=== PATIENT | male | born 1930 | race Caucasian/White ===

== ENCOUNTER → 2016-08-11 | Outpatient (CLI) | payer BC ==
[2016-08-10 09:44] LABS: BASO % 0.9 %; BASO ABS # 0.07 K/uL (0-0.2); COMPLETE YES; EOS % 3.9 %; HEMATOCRIT 44.6 % (42-52); IG% 0.5 %; LYMPH % 32.7 %; LYMPH ABS # 2.58 K/uL (1.2-3.4); MEAN CELL VOLUME 93.1 fL (80-100); MEAN CORPUSCULAR HEMOGLOBIN 32.4 pg (25-34); MEAN CORPUSCULAR HGB CONC 34.8 g/dl (32-36); MEAN PLATELET VOLUME 10.4 fL (7.4-10.4); MONO % 8.9 %; NEUT % 53.1 %; PLATELET COUNT 250 K/uL (130-400); RED BLOOD COUNT 4.79 M/uL (4.7-6.1); WHITE BLOOD COUNT 7.89 K/uL (4.8-10.8)
[2016-08-10 09:52] LABS: BLOOD UREA NITROGEN 14 mg/dl (7-18); BUN/CREATININE RATIO 10.4 (10-20); CALCIUM 9.4 mg/dl (8.5-10.1); CARBON DIOXIDE 25 mmol/L (21-32); CHLORIDE 106 mmol/L (98-107); CHOLESTEROL 158 mg/dl (0-200); GLUCOSE 90 mg/dl (70-99); MAGNESIUM 2.1 mg/dl (1.8-2.4); POTASSIUM 3.8 mmol/L (3.5-5.1); SODIUM 143 mmol/L (136-145); TRIGLYCERIDES 120 mg/dl (0-150); VERY LOW DENSITY LIPOPROT CALC 24 mg/dl
[2016-08-10 10:02] LABS: CHOLESTEROL/HDL RATIO 4.2; HDL CHOLESTEROL 38 mg/dl; LDL CHOLESTEROL CALCULATED 96 mg/dl
[2016-08-10 10:33] LABS: ESTIMATED AVERAGE GLUCOSE 114 mg/dl; HA1C FLAG Normal (Normal)
[~2016-08-11] MED LIST: ASPCH81 PO; ASPI81TA28 PO; FINA5TAB PO; INDA1TAB3 PO; MULT-513 PO; NXM/40 PO; RIVA1TAB4 PO; SENN8.6T7 PO; TERA5CAP PO; TPRSR/25 PO
[2016-08-11 10:28] LABS: URINE APPEARANCE CLEAR (CLEAR); URINE BILIRUBIN NEG (NEG); URINE COLOR YELLOW; URINE NITRITE NEG (NEG); URINE PH 7.5 (4.5-7.5); URINE SPECIFIC GRAVITY 1.016 (1.000-1.030); UROBILINOGEN NEG (NEG)
[2016-08-11 10:30] LABS: MANUAL MICROSCOPIC REQUIRED? NO; REVIEW REQ? NO
--- NOTE | 2016-08-17 13:04 | CODING QUERY MEDICAL NECESSITY ---
SUPPORTING DIAGNOSIS NEEDED A supporting diagnosis is required for the test/procedure performed on this patient in order for us to be reimbursed by the patient's insurance. Please provide a supporting diagnosis for the following test/procedure listed below next to the test name along with your signature. *If there is no additional diagnosis for this patient that would support the following test/procedure please document that below next to the test/procedure. Test(s)/Procedure(s) that require a supporting diagnosis: * GLYCATED HEMOGLOBIN DIAGNOSIS: * DOS: 08/10/16 Provider Signature: Date: Thank you Apple [facility] Information Management Once completed, please kindly fax back to [phone] For questions please call [phone]
== END | disposition home or self-care (01) ==
LOC: C.LABVPSUW 08-10 09:19
PROVIDERS: ATTEND Internal Medicine
DX: I10 Essential (primary) hypertension (principal); R73.9 Hyperglycemia, unspecified

== ENCOUNTER → 2016-08-24 | Outpatient (CLI) | payer BC, OTHER ==
--- NOTE | 2016-08-24 13:08 | DIAGNOSTIC IMAGING REPORT ---
ULTRASOUND KIDNEYS AND BLADDER CLINICAL HISTORY: Hypertension. Renal cyst. COMPARISON STUDY: Renal ultrasound dated 10/08/2014. TECHNIQUE: Real-time, grayscale, and color flow sonography of the kidneys and bladder is performed. Images are reviewed in the transverse and longitudinal planes. FINDINGS: Kidneys: The kidneys are atrophic. The right kidney measures 11.3 x 4.8 x 5.5 cm and the left kidney measures 11.3 x 5.3 x 5.0 cm. There is no hydronephrosis. No shadowing renal calculi are identified. A septation containing cyst is again seen in the interpolar right kidney and measures up to 4.3 cm. An additional smaller cyst is noted. There is no sonographic evidence of contour deforming renal mass lesion. No perinephric fluid is identified. Bladder: The bladder is normal in appearance. Bilateral ureteral jets were seen. IMPRESSION: 1. The kidneys are atrophic and without hydronephrosis. 2. The bladder was normal as visualized. 3. Right renal cysts are similar to the 10/08/2014 examination. Electronically signed by: Geoffrey Caballero M.D. 08/24/2016 1:07 PM Dictated Date/Time: 08/24/2016 1:04 PM
== END | disposition home or self-care (01) ==
LOC: C.ULTR 12:30
PROVIDERS: ATTEND Internal Medicine
DX: I10 Essential (primary) hypertension (principal); N28.1 Cyst of kidney, acquired; N26.1 Atrophy of kidney (terminal)

== ENCOUNTER 2016-08-30 22:01 | Inpatient (IN) | payer BC, OTHER ==
[~2016-08-30] VITALS: Ht 180.3 cm; Wt 97.8 kg
[~2016-08-30 22:01] MED LIST changes: -ASPI81TA28 PO; -RIVA1TAB4 PO; -SENN8.6T7 PO; -TPRSR/25 PO
[2016-08-30] MEDS ORDERED: TPRSR/25 PO (22:32)
[2016-08-30] MEDS ORDERED: ASPI81TA28 PO (22:32)
[2016-08-30] MEDS ORDERED: RIVA1TAB4 PO (22:32)
[2016-08-30] MEDS ORDERED: ONDANSETRON INJ 2 MG/ML 2 ML VIAL IV STA (23:11)
[2016-08-30] MEDS ORDERED: OPTIRAY 320 IV PRN (23:30)
--- NOTE | 2016-08-30 23:30 | EMERGENCY ROOM VISIT NOTE ---
ED Visit Note First contact with patient: 22:10 I have seen and examined this patient with Viv Lange and generally agree with the treatment plan as discussed. Problem List Medical Problems: (1) Hematuria Status: Resolved (2) Renal cyst Status: Resolved (3) UTI (urinary tract infection) Status: Resolved Current/Historical Medications Scheduled Aspirin (Aspirin Ec), 81 MG PO DAILY Esomeprazole Magnesium (Nexium), 40 MG PO DAILY Finasteride (Proscar), 5 MG PO DAILY Indapamide (Lozol), 1.25 MG PO DAILY Metoprolol Succinate (Metoprolol Succinate ER), 1 TAB PO DAILY Multivitamins/Minerals (Mvi With Minerals), 1 TAB PO DAILY Rivaroxaban (Xarelto), 1 TAB PO DAILY Terazosin (Hytrin), 5 MG PO DAILY Allergies Coded Allergies: Penicillins (Unverified Allergy, Severe, HIVES, 08/30/16) Sulfamethoxazole (Unverified Allergy, Severe, RASH ITCHING, 08/30/16) Vital Signs Date Time Temp Pulse Resp B/P Pulse Ox O2 Delivery O2 Flow Rate FiO2 08/30/16 22:03 36.4 99 16 148/81 98 Room Air Laboratory Results Test 08/30/16 22:18 Departure Information Referrals Ruddy Browne M.D. (PCP) Patient Instructions My [facility]
[2016-08-30 23:45] LABS: HEMATOCRIT 47.1 % (42-52); MEAN CELL VOLUME 90.1 fL (80-100); MEAN CORPUSCULAR HEMOGLOBIN 32.3 pg (25-34); MEAN CORPUSCULAR HGB CONC 35.9 g/dl (32-36); MEAN PLATELET VOLUME 9.5 fL (7.4-10.4); PLATELET COUNT 252 K/uL (130-400); RED BLOOD COUNT 5.23 M/uL (4.7-6.1); WHITE BLOOD COUNT 13.44 K/uL (4.8-10.8)
[2016-08-31] VITALS (7 sets, daily range): BP systolic 115–140; BP diastolic 71–81; PULSE 60–94; TEMP 36.4–36.7; O2SAT 92–98; Ht 180.3 cm; Wt 97.8 kg
[2016-08-31 00:01] LABS: URINE APPEARANCE CLEAR (CLEAR); URINE BILIRUBIN NEG (NEG); URINE COLOR DK YELLOW; URINE NITRITE NEG (NEG); URINE PH 5.5 (4.5-7.5); URINE SPECIFIC GRAVITY 1.019 (1.000-1.030); UROBILINOGEN NEG (NEG); ZZUR CULT IF INDIC CLEAN CATCH NO
[2016-08-31 00:06] LABS: CREATININE 1.3 mg/dl (0.60-1.40)
[2016-08-31 00:07] LABS: BUN/CREATININE RATIO 11.8 (10-20); CALCIUM 9.5 mg/dl (8.5-10.1); POTASSIUM 3.6 mmol/L (3.5-5.1)
[2016-08-31 00:11] LABS: MANUAL MICROSCOPIC REQUIRED? NO; REVIEW REQ? NO
[2016-08-31 00:19] LABS: BASO % 0.3 %; BASO ABS # 0.04 K/uL (0-0.2); COMPLETE YES; EOS % 0.7 %; IG% 0.4 %; LYMPH % 13.8 %; LYMPH ABS # 1.85 K/uL (1.2-3.4); MONO % 5.8 %
--- NOTE | 2016-08-31 01:50 | EMERGENCY ROOM VISIT NOTE ---
History First contact with patient: 22:10 Chief Complaint: ABDOMINAL PAIN Stated Complaint: ABD PRESSURE History of Present Illness The patient is a 86 year old male who presents to the Emergency Room with complaints of generalized abdominal pain. The patient states that for the past 5 days he has been having to strain to move his bowels. He states on and Wednesday he took 2 tablets of Dulcolax each time but still had to strain to move his bowels. Early this morning at 2 AM he woke up to go urinate and when he got back in the bed he felt achy in the stomach. He states this lasted for 30 minutes and then went away. This evening he started getting generalized abdominal pain which she rates at a 2 out of 10. Intermittently the pain goes up to 5 out of 10 with a sharp pain. The patient does admit to some hematuria but states that has been an ongoing problem. He has been checked out for that in the past. The patient denies any dysuria, increased frequency or urgency. The patient denies any nausea or vomiting. He denies any fever. Review of Systems 10 system review was performed and was negative unless stated otherwise history of present illness. Past Medical/Surgical History Medical Problems: (1) Hematuria (2) Renal cyst (3) UTI (urinary tract infection) Social History Smoking Status: Never Smoker Marital Status: Housing Status: lives with significant other Occupation Status: retired Current/Historical Medications Scheduled Aspirin (Aspirin Ec), 81 MG PO DAILY Esomeprazole Magnesium (Nexium), 40 MG PO DAILY Finasteride (Proscar), 5 MG PO DAILY Indapamide (Lozol), 1.25 MG PO DAILY Metoprolol Succinate (Metoprolol Succinate ER), 1 TAB PO DAILY Multivitamins/Minerals (Mvi With Minerals), 1 TAB PO DAILY Rivaroxaban (Xarelto), 1 TAB PO DAILY Terazosin (Hytrin), 5 MG PO DAILY Allergies Coded Allergies: Penicillins (Unverified Allergy, Severe, HIVES, 08/30/16) Sulfamethoxazole (Unverified Allergy, Severe, RASH ITCHING, 08/30/16) Physical Exam Vital Signs Date Time Temp Pulse Resp B/P Pulse Ox O2 Delivery O2 Flow Rate FiO2 08/30/16 23:46 73 18 131/56 93 Room Air 08/30/16 22:03 36.4 99 16 148/81 98 Room Air Physical Exam GENERAL: 86-year-old white male appears in no acute distress. MENTAL Status: Alert and oriented 3. MOUTH: Mucosa is moist. NECK: Supple, no lymphadenopathy noted. No carotid bruits noted. LUNGS: Clear auscultation without wheezes rales or rhonchi. CARDIAC: Regular rate and rhythm with a 2/6 murmur noted.. Pulses is full and equal throughout. BACK: No CVA tenderness noted. ABDOMEN: Positive bowel sounds all 4 quadrants. Soft, mild tenderness palpation in the left upper and lower quadrant. Otherwise nontender to palpation without organomegaly or masses. EXTREMITIES: No cyanosis or edema noted. Medical Decision & Procedures Laboratory Results 08/30/16 23:30 Red Blood Count 5.23, Mean Corpuscular Volume 90.1, Mean Corpuscular Hemoglobin 32.3, Mean Corpuscular Hemoglobin Concent 35.9, Mean Platelet Volume 9.5, Neutrophils (%) (Auto) 79.0, Lymphocytes (%) (Auto) 13.8, Monocytes (%) (Auto) 5.8, Eosinophils (%) (Auto) 0.7, Basophils (%) (Auto) 0.3, Neutrophils # (Auto) 10.62, Lymphocytes # (Auto) 1.85, Monocytes # (Auto) 0.78, Eosinophils # (Auto) 0.09, Basophils # (Auto) 0.04 08/30/16 23:30 Test 08/30/16 23:30 White Blood Count 13.44 K/uL (4.8-10.8) Red Blood Count 5.23 M/uL (4.7-6.1) Hemoglobin 16.9 g/dL (14.0-18.0) Hematocrit 47.1 % (42-52) Mean Corpuscular Volume 90.1 fL (80-100) Mean Corpuscular Hemoglobin 32.3 pg (25-34) Mean Corpuscular Hemoglobin Concent 35.9 g/dl (32-36) Platelet Count 252 K/uL (130-400) Mean Platelet Volume 9.5 fL (7.4-10.4) Neutrophils (%) (Auto) 79.0 % Lymphocytes (%) (Auto) 13.8 % Monocytes (%) (Auto) 5.8 % Eosinophils (%) (Auto) 0.7 % Basophils (%) (Auto) 0.3 % Neutrophils # (Auto) 10.62 K/uL (1.4-6.5) Lymphocytes # (Auto) 1.85 K/uL (1.2-3.4) Monocytes # (Auto) 0.78 K/uL (0.11-0.59) Eosinophils # (Auto) 0.09 K/uL (0-0.5) Basophils # (Auto) 0.04 K/uL (0-0.2) RDW Standard Deviation 43.0 fL (36.4-46.3) RDW Coefficient of Variation 13.0 % (11.5-14.5) Immature Granulocyte % (Auto) 0.4 % Immature Granulocyte # (Auto) 0.06 K/uL (0.00-0.02) Urine Color DK YELLOW Urine Appearance CLEAR (CLEAR) Urine pH 5.5 (4.5-7.5) Urine Specific [place] 1.019 (1.000-1.030) Urine Protein NEG (NEG) Urine Glucose (UA) NEG (NEG) Urine Ketones NEG (NEG) Urine Occult Blood 1+ (NEG) Urine Nitrite NEG (NEG) Urine Bilirubin NEG (NEG) Urine Urobilinogen NEG (NEG) Urine Leukocyte Esterase NEG (NEG) Urine WBC (Auto) 1-5 /hpf (0-5) Urine RBC (Auto) 5-10 /hpf (0-4) Urine Hyaline Casts (Auto) 0 /lpf (0-5) Urine Epithelial Cells (Auto) 10-20 /lpf (0-5) Urine Bacteria (Auto) NEG (NEG) Anion Gap 12.0 mmol/L (3-11) Est Creatinine Clear Calc Drug Dose 48.6 ml/min Estimated GFR () 57.3 Estimated GFR (Non- 49.4 BUN/Creatinine Ratio 11.8 (10-20) Calcium Level 9.5 mg/dl (8.5-10.1) Total Bilirubin 0.6 mg/dl (0.2-1) Direct Bilirubin 0.1 mg/dl (0-0.2) Aspartate Amino Transf (AST/SGOT) 30 U/L (15-37) Alanine Aminotransferase (ALT/SGPT) 41 U/L (12-78) Alkaline Phosphatase 71 U/L (45-117) Total Protein 7.9 gm/dl (6.4-8.2) Albumin 3.9 gm/dl (3.4-5.0) Lipase 131 U/L (73-393) Medications Administered Medications (Trade) Dose Ordered Sig/Eliezer Route Start Time Stop Time Status Last Admin Dose Admin Ondansetron HCl (Zofran Inj) 4 mg NOW STAT IV 08/30/16 23:11 08/30/16 23:12 DC 08/30/16 23:36 4 MG ED Course The patient was evaluated. IV access was obtained. CBC differential, renal profile, LFTs and lipase levels were ordered. Urinalysis was ordered. Abdominal series x-ray was ordered and interpreted by the radiologist and myself without any evidence of obstruction. There is a [id number] amount of stool within the colon. This will later be interpreted by the radiologist. The patient was reevaluated was feeling slightly nauseated therefore he was given Zofran 4 mg IV push. The patient's labs are reviewed. Patient's white count was only out slightly elevated at 13,000 otherwise labs are unremarkable. The patient was independently evaluated the Dr. Botello who agrees with treatment plan. A CT of the abdomen and pelvis with IV contrast was ordered and interpreted by stat rad. 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 1.8 Hycodan's cardiac mass in the left atrium could reflect thrombus or skull lesion such as myxoma. 5 mm right lower lobe nodule. The patient was informed of the findings. Hospitalist was consulted for admission. Dr. Karimi was also consulted. Dr. Karimi reviewed the images and stated that the patient could be admitted by the hospitalist. The hospitalist was informed and the patient will be admitted by medicine. Medical Decision Differential diagnoses include reflux, gastritis, gastroenteritis, pancreatitis , cholelithiasis, cholecystitis, appendicitis, mesenteric ischemia, pyelonephritis, urinary tract infection, renal colic, diverticulitis, shingles, bowel obstruction, intussusception, hernia, Impression Primary Impression: Small bowel obstruction Additional Impressions: Aneurysm of infrarenal abdominal aorta Right lower lobe lung mass Cardiac mass Departure Information Dispostion Being Evaluated By Hospitalist Condition GOOD Referrals Ruddy Browne M.D. (PCP) Patient Instructions My [facility] Problem Qualifiers
[2016-08-31] MEDS ORDERED: ONDANSETRON INJ 2 MG/ML 2 ML VIAL IV PRN (02:45)
[2016-08-31] MEDS ORDERED: MoRPHine SULFATE 2 MG/ML CARP IV PRN (02:45)
--- NOTE | 2016-08-31 03:50 | History and Physical ---
History & Physical Date & Time of Service: Aug 31, 2016 at 03:24 Chief Complaint: Abd Pressure Primary Care Physician: Ruddy Browne M.D. History of Present Illness Source: patient, family 86 y/o M w/Hx of HTN, paroxysmal AF. Pt developed central abdominal pain and constipation over the past 2 days. He denies any diarrhea, nausea or vomiting. He denies fevers. A CT was obtained in the ER revealing Jejunal thickening and a related SBO. The pt is passing small amounts of gas but has not had a BM in over 2 days. Incidentally present on the CT is a 1.8 cm L atrial mass which may represent a thrombus or myxoma. The pt has not had any CP or SOB. He is anticoagulated with Xarelto. Past Medical/Surgical History Medical Problems: (1) Hematuria Status: Resolved (2) Renal cyst Status: Resolved (3) UTI (urinary tract infection) Status: Resolved 4) Paroxysmal AF 5) BPH 6) HTN Family History Reviewed and noncontributory Social History Smoking Status: Never Smoker Marital Status: Occupational Status: retired Multi-Drug Resistant Organisms History of MDRO: No Allergies Coded Allergies: Penicillins (Unverified Allergy, Severe, HIVES, 08/30/16) Sulfamethoxazole (Unverified Allergy, Severe, RASH ITCHING, 08/30/16) Home Medications Scheduled Aspirin (Aspirin Ec), 81 MG PO DAILY Esomeprazole Magnesium (Nexium), 40 MG PO DAILY Finasteride (Proscar), 5 MG PO DAILY Indapamide (Lozol), 1.25 MG PO DAILY Metoprolol Succinate (Metoprolol Succinate ER), 1 TAB PO DAILY Multivitamins/Minerals (Mvi With Minerals), 1 TAB PO DAILY Rivaroxaban (Xarelto), 1 TAB PO DAILY Terazosin (Hytrin), 5 MG PO DAILY Review of Systems Constitutional: No chills, No fever, No sweats Eyes: No eye pain, No worsening of vision ENT: No hearing loss, No nasal symptoms, No unusual epistaxis Respiratory: No cough, No sputum, No wheezing Cardiovascular: No PND, No chest pain, No orthopnea Abdomen: + constipation, + pain, No diarrhea, No nausea, No vomiting Musculoskeletal: No joint pain, No muscle pain Genitourinary - Male: No dysuria, No hematuria, No urinary frequency, No urinary urgency Neurologic: No memory loss, No paralysis, No weakness Psychiatric: No depression symptoms Endocrine: No fatigue Hematologic / Lymphatic: No abnormal bleeding/bruising Integumentary: No rash Allergic / Immunologic: No environmental allergies Physical Exam Vital Signs Date Time Temp Pulse Resp B/P Pulse Ox O2 Delivery O2 Flow Rate FiO2 08/31/16 02:57 71 18 125/58 96 Room Air 08/31/16 01:57 71 18 125/60 94 Room Air 08/30/16 23:46 73 18 131/56 93 Room Air 08/30/16 22:03 36.4 99 16 148/81 98 Room Air General Appearance: WD/WN, no apparent distress Head: normocephalic, atraumatic Eyes: normal inspection, PERRL, EOMI ENT: normal ENT inspection, hearing grossly normal, TMs normal, pharynx normal Neck: supple, no adenopathy, thyroid normal, no JVD Respiratory/Chest: chest non-tender, lungs clear, normal breath sounds Cardiovascular: regular rate, rhythm, no edema, no gallop, no JVD, no murmur, normal peripheral pulses Abdomen/GI: + pertinent finding (Abdomen is firm , nondistended and minimally diffusely tender to palpation) Back: normal inspection, no CVA tenderness Extremities/Musculoskelatal: normal inspection, no calf tenderness, normal capillary refill, no pedal edema, normal range of motion Neurologic/Psych: grease renderer II-XII nml as tested, no motor/sensory deficits, alert, normal mood/affect, normal reflexes, oriented x 3 Skin: normal color, warm/dry, no rash Lymphatic: no adenopathy Diagnostics Laboratory Results Results Past 24 Hours Test 08/30/16 23:30 Range/Units White Blood Count 13.44 4.8-10.8 K/uL Red Blood Count 5.23 4.7-6.1 M/uL Hemoglobin 16.9 14.0-18.0 g/dL Hematocrit 47.1 42-52 % Mean Corpuscular Volume 90.1 80-100 fL Mean Corpuscular Hemoglobin 32.3 25-34 pg Mean Corpuscular Hemoglobin Concent 35.9 32-36 g/dl Platelet Count 252 130-400 K/uL Mean Platelet Volume 9.5 7.4-10.4 fL Neutrophils (%) (Auto) 79.0 % Lymphocytes (%) (Auto) 13.8 % Monocytes (%) (Auto) 5.8 % Eosinophils (%) (Auto) 0.7 % Basophils (%) (Auto) 0.3 % Neutrophils # (Auto) 10.62 1.4-6.5 K/uL Lymphocytes # (Auto) 1.85 1.2-3.4 K/uL Monocytes # (Auto) 0.78 0.11-0.59 K/uL Eosinophils # (Auto) 0.09 0-0.5 K/uL Basophils # (Auto) 0.04 0-0.2 K/uL RDW Standard Deviation 43.0 36.4-46.3 fL RDW Coefficient of Variation 13.0 11.5-14.5 % Immature Granulocyte % (Auto) 0.4 % Immature Granulocyte # (Auto) 0.06 0.00-0.02 K/uL Urine Color DK YELLOW Urine Appearance CLEAR CLEAR Urine pH 5.5 4.5-7.5 Urine Specific [place] 1.019 1.000-1.030 Urine Protein NEG NEG Urine Glucose (UA) NEG NEG Urine Ketones NEG NEG Urine Occult Blood 1+ NEG Urine Nitrite NEG NEG Urine Bilirubin NEG NEG Urine Urobilinogen NEG NEG Urine Leukocyte Esterase NEG NEG Urine WBC (Auto) 1-5 0-5 /hpf Urine RBC (Auto) 5-10 0-4 /hpf Urine Hyaline Casts (Auto) 0 0-5 /lpf Urine Epithelial Cells (Auto) 10-20 0-5 /lpf Urine Bacteria (Auto) NEG NEG Sodium Level 141 136-145 mmol/L Potassium Level 3.6 3.5-5.1 mmol/L Chloride Level 102 98-107 mmol/L Carbon Dioxide Level 27 21-32 mmol/L Anion Gap 12.0 3-11 mmol/L Blood Urea Nitrogen 15 7-18 mg/dl Creatinine 1.30 0.60-1.40 mg/dl Est Creatinine Clear Calc Drug Dose 48.6 ml/min Estimated GFR () 57.3 Estimated GFR (Non- 49.4 BUN/Creatinine Ratio 11.8 10-20 Random Glucose 137 70-99 mg/dl Calcium Level 9.5 8.5-10.1 mg/dl Total Bilirubin 0.6 0.2-1 mg/dl Direct Bilirubin 0.1 0-0.2 mg/dl Aspartate Amino Transf (AST/SGOT) 30 15-37 U/L Alanine Aminotransferase (ALT/SGPT) 41 12-78 U/L Alkaline Phosphatase 71 45-117 U/L Total Protein 7.9 6.4-8.2 gm/dl Albumin 3.9 3.4-5.0 gm/dl Lipase 131 73-393 U/L Diagnostic Radiology CT abdomen: 1) Jejunal thickening consistent with enteritis and resultant SBO 2) Infrarenal AAA 3.4 cm 3) Moderate atherosclerosis of superior mesenteric artery 4) 1.8 CM hypodense mass in L atrium may represent myxoma or thrombus Impression Assessment and Plan 86 y/o M w/Hx of HTN, paroxysmal AF. Pt developed central abdominal pain and constipation over the past 2 days. He denies any diarrhea, nausea or vomiting. He denies fevers. A CT was obtained in the ER revealing Jejunal thickening and a related SBO. The pt is passing small amounts of gas but has not had a BM in over 2 days. Incidentally present on the CT is a 1.8 cm L atrial mass which may represent a thrombus or myxoma. The pt has not had any CP or SOB. He is anticoagulated with Xarelto. 1) SBO - We will keep the pt NPO w/IVF, consult surgery - explained to him that he may need an NGT with worsening pain or nausea/vomiting - we will obtain a lactic and amylase to r/o an ischemic etiology considering the atherosclerosis on CT. Provided with PRN Morphine. 2) Atrial mass - echo and cardiology consult requested. It is unlikely that surgery would be beneficial at present if this is a myxoma. If this is verified as a thrombus then the pt should likely be transitioned to Coumadin. Pt and family aware of finding. 3) AF - currently sinus - Cont B clemente 4) HTN - Metoprolol, Indapamide 5) BPH - Proscar Full code - fully anticoagulated Total time for this admit including review of labs, meds, imaging, available records - discussion with ER attending and pt/family - 38 min Level of Care Med/Surg Resuscitation Status FULL RESUSCITATION VTE Prophylaxis VTE Risk Assessment Done? Y/N: Yes Risk Level: Low Given or contraindicated: Other Anticoagulation
[2016-08-31] MEDS: NSS + 20MEQ KCL 1000ML 1,000 ML IV SCH ×2 (05:06→14:44)
--- NOTE | 2016-08-31 05:42 | Surgery Progress Note ---
Surgery Progress Note Date of Service Aug 31, 2016. Subjective see dictated consult Objective Vital Signs: Date Time Temp Pulse Resp B/P Pulse Ox O2 Delivery O2 Flow Rate FiO2 08/31/16 03:25 Room Air 08/31/16 03:25 36.5 87 18 124/71 97 Room Air 08/31/16 02:57 71 18 125/58 96 Room Air 08/31/16 01:57 71 18 125/60 94 Room Air 08/30/16 23:46 73 18 131/56 93 Room Air 08/30/16 22:03 36.4 99 16 148/81 98 Room Air Abdomen: soft (decreased bs) Laboratory Results: Results Past 24 Hours Test 08/30/16 23:30 Range/Units White Blood Count 13.44 4.8-10.8 K/uL Red Blood Count 5.23 4.7-6.1 M/uL Hemoglobin 16.9 14.0-18.0 g/dL Hematocrit 47.1 42-52 % Mean Corpuscular Volume 90.1 80-100 fL Mean Corpuscular Hemoglobin 32.3 25-34 pg Mean Corpuscular Hemoglobin Concent 35.9 32-36 g/dl Platelet Count 252 130-400 K/uL Mean Platelet Volume 9.5 7.4-10.4 fL Neutrophils (%) (Auto) 79.0 % Lymphocytes (%) (Auto) 13.8 % Monocytes (%) (Auto) 5.8 % Eosinophils (%) (Auto) 0.7 % Basophils (%) (Auto) 0.3 % Neutrophils # (Auto) 10.62 1.4-6.5 K/uL Lymphocytes # (Auto) 1.85 1.2-3.4 K/uL Monocytes # (Auto) 0.78 0.11-0.59 K/uL Eosinophils # (Auto) 0.09 0-0.5 K/uL Basophils # (Auto) 0.04 0-0.2 K/uL RDW Standard Deviation 43.0 36.4-46.3 fL RDW Coefficient of Variation 13.0 11.5-14.5 % Immature Granulocyte % (Auto) 0.4 % Immature Granulocyte # (Auto) 0.06 0.00-0.02 K/uL Urine Color DK YELLOW Urine Appearance CLEAR CLEAR Urine pH 5.5 4.5-7.5 Urine Specific [place] 1.019 1.000-1.030 Urine Protein NEG NEG Urine Glucose (UA) NEG NEG Urine Ketones NEG NEG Urine Occult Blood 1+ NEG Urine Nitrite NEG NEG Urine Bilirubin NEG NEG Urine Urobilinogen NEG NEG Urine Leukocyte Esterase NEG NEG Urine WBC (Auto) 1-5 0-5 /hpf Urine RBC (Auto) 5-10 0-4 /hpf Urine Hyaline Casts (Auto) 0 0-5 /lpf Urine Epithelial Cells (Auto) 10-20 0-5 /lpf Urine Bacteria (Auto) NEG NEG Sodium Level 141 136-145 mmol/L Potassium Level 3.6 3.5-5.1 mmol/L Chloride Level 102 98-107 mmol/L Carbon Dioxide Level 27 21-32 mmol/L Anion Gap 12.0 3-11 mmol/L Blood Urea Nitrogen 15 7-18 mg/dl Creatinine 1.30 0.60-1.40 mg/dl Est Creatinine Clear Calc Drug Dose 48.6 ml/min Estimated GFR () 57.3 Estimated GFR (Non- 49.4 BUN/Creatinine Ratio 11.8 10-20 Random Glucose 137 70-99 mg/dl Calcium Level 9.5 8.5-10.1 mg/dl Total Bilirubin 0.6 0.2-1 mg/dl Direct Bilirubin 0.1 0-0.2 mg/dl Aspartate Amino Transf (AST/SGOT) 30 15-37 U/L Alanine Aminotransferase (ALT/SGPT) 41 12-78 U/L Alkaline Phosphatase 71 45-117 U/L Total Protein 7.9 6.4-8.2 gm/dl Albumin 3.9 3.4-5.0 gm/dl Lipase 131 73-393 U/L Assessment & Plan 08/31/16- adm with abd pain, nausea- possible sbo on CT nonoperative mgt at present. hold NG unless worsens
--- NOTE | 2016-08-31 07:41 | DIAGNOSTIC IMAGING REPORT ---
ABDOMEN AND PELVIS CT WITH IV CONTRAST CT DOSE: 762.24 mGy.cm HISTORY: left upper and left lower abdominal pain TECHNIQUE: Multiaxial CT images of the abdomen and pelvis were performed following the use of intravenous contrast. COMPARISON STUDY: Renal ultrasound 08/24/2016. FINDINGS: A 4 mm subpleural nodule within the right lower lobe on image 2. Bibasilar subsegmental atelectasis. The liver, gallbladder, spleen, adrenal glands, and pancreas are unremarkable. There is a right renal cyst. No hydronephrosis. A 3.6 cm infrarenal abdominal aortic aneurysm. The bladder is unremarkable. Colonic diverticulosis. Normal appendix. Short segment of thickened jejunum within the left anterior abdomen on images 48 through 56. This results in the transition point of the low-grade partial small bowel obstruction. There is a 2 cm hypodense filling defect seen within the left atrium abutting the intra-atrial septum. Mild to moderate narrowing within the proximal superior mesenteric artery. IMPRESSION: 1. Focal segment of mild bowel wall thickening involving the jejunum within the left anterior abdomen. This results in a transition point for a low-grade partial small bowel obstruction. This is consistent with a nonspecific enteritis. 2. A 3.6 cm infrarenal abdominal aortic aneurysm. 3. A 2 cm hypodense filling defect seen within the left atrium abutting the endotracheal septum. Echocardiogram can be used for further evaluation to evaluate for a thrombus or lesion such as a myxoma. Electronically signed by: Jaziel Humphreys M.D. 08/31/2016 7:40 AM Dictated Date/Time: 08/31/2016 7:33 AM
--- NOTE | 2016-08-31 07:43 | DIAGNOSTIC IMAGING REPORT ---
CHEST AND ABDOMEN 2 VIEWS HISTORY: constipation/generalized abdominal pain COMPARISON: Chest 01/11/2015. FINDINGS: The lungs are clear. The cardiomediastinal silhouette is within normal limits. There is no pneumoperitoneum or pneumatosis. The bowel gas pattern is unremarkable. No evidence for bowel obstruction. No renal calculi. IMPRESSION: No acute cardiopulmonary process. No evidence for bowel obstruction. Electronically signed by: Jaziel Humphreys M.D. 08/31/2016 7:42 AM Dictated Date/Time: 08/31/2016 7:41 AM
--- NOTE | 2016-08-31 08:53 | SURGICAL CONSULTATION ---
DATE OF CONSULTATION: 08/31/2016 REASON FOR CONSULT: For small bowel obstruction. HISTORY OF PRESENT ILLNESS: The patient is an 86-year-old male presenting to the Emergency Room with abdominal pain and nausea and had some constipation. He took some Dulcolax and did have a bowel movement but had some persistent abdominal pain and presented to the Emergency Room. He does show some evidence of dehydration and his CAT scan shows some very mildly dilated small bowel loops, which shows possible small-bowel obstruction. White blood cell count is 13.4. His H\T\H is 16.9 and 47 respectively, pulse is 73 and he is on Xarelto. His other history includes UTI and hematuria. He also has a history of AFib. FAMILY AND SOCIAL HISTORY: Essentially noncontributory. REVIEW OF SYSTEMS: He has a positive review in the HPI. He has no fevers, chills, cough, shortness of breath, chest pain, vomiting, joint pain, dysuria, weakness, fatigue. No rash. PHYSICAL EXAMINATION: HEENT: Eyes show his sclerae to be normal, no rashes, atraumatic head. NECK: Supple. LUNGS: No respiratory distress. HEART: Irregular rhythm. ABDOMEN: Flat and soft. He has minimal tenderness. He has decreased bowel sounds. EXTREMITIES: Without significant edema, no significant deformities. I did review the CAT scan. ASSESSMENT AND PLAN: An 86-year-old male who actually looks very good for his age. Admitted with mildly dilated small bowel on CAT scan with abdominal pain and nausea. He apparently has had symptoms for 4-5 days. We will continue him on IV fluids, minimal p.o. intake, make sure his electrolytes are normalized. If he does worsen, he may need an NG tube and we may consider contrast with repeat CT scan.
[2016-08-31] MEDS: ASPIRIN 81 MG ECTAB PO SCH (09:56)
[2016-08-31] MEDS: METOPROLOL SUCC 25MG EXT REL TAB PO SCH (09:57)
[2016-08-31] MEDS: PANTOprazole SOD 40 MG TAB PO SCH (09:57)
[2016-08-31] MEDS: FINASTERIDE 5 MG TAB PO SCH (09:57)
[2016-08-31] MEDS: INDAPAMIDE 1.25 MG TAB PO SCH (09:57)
--- NOTE | 2016-08-31 10:12 | Medical Student: [facility] ---
Consultation Date of Consultation: Aug 31, 2016. Requesting Physician: Melecio Woods MD Attending Physician: Floyd Walker MD Reason for Consultation: Left atrial mass History of Present Illness Mr. Matthew is a pleasant 86 y/o male with a history of hypertension and paroxysmal atrial fibrillation who presented to the ED yesterday for a small bowel obstruction. CT of the chest and abdomen performed at that time showed a 1.8cm mass in the left atrium. He denies chest pain, shortness of breath, nausea, or jaw/arm symptoms. He denies fever or chills. He currently reports 2/ 10 abdominal pain, which he attributes to his small bowel obstruction. He does report that, at home, he does have some dyspnea with exertion, but this is relieved with rest and not associated with any chest pain or pressure. He denies weakness, paresthesias, sensory deficits, coordination problems, or memory difficulties. He denies calf tenderness. He has no history of abnormal clots or bleeding. He has been NSR since admission and vitals have been stable throughout his hospital course. He is currently anticoagulated with Xarelto 20mg daily and also takes 81mg aspirin daily. He states that he had an echo performed approximately 3 months ago, and this mass was not present at that time. Past Medical/Surgical History Medical History: 1. Hypertension 2. Paroxysmal atrial fibrillation 3. Benign prostatic hypertrophy 4. Hematuria 5. Renal cyst Family History Non-contributory; no family history of cardiac tumors or coagulopathy. Social History Smoking Status: Never Smoker History of Alcohol Use: Yes (wine occassionaly ) Marital Status: Housing Status: lives with family Occupation Status: retired Review of Systems Constitutional: No chills, No fatigue, No fever, No sweats, No weakness, No weight loss Eyes: No diplopia, No eye pain, No worsening of vision ENT: No hearing loss, No tinnitus, No trouble swallowing, No unusual epistaxis Respiratory: + dyspnea on exertion, No cough, No dyspnea at rest, No shortness of breath, No wheezing Cardiac: No PND, No chest pain, No claudication, No edema, No orthopnea, No palpitations Abdomen: + constipation, + pain, No GI bleeding, No diarrhea, No nausea, No vomiting Musculoskeletal: No problem reported Male : + hematuria (baseline for him) Neurologic: No balance problems, No memory loss, No numbness/tingling, No paralysis, No vertigo, No weakness Heme: No abnormal bleeding/bruising, No clotting problems Endo: No excessive thirst, No excessive urination Skin: No bleeding, No new/changing skin lesions, No rash All Other Systems: Reviewed and Negative Allergies Coded Allergies: Penicillins (Unverified Allergy, Severe, HIVES, 08/30/16) Sulfamethoxazole (Unverified Allergy, Severe, RASH ITCHING, 08/30/16) Medications Current Inpatient Medications Medications (Trade) Dose Ordered Sig/Eliezer Route Start Time Stop Time Status Last Admin Dose Admin Ioversol (Optiray 320) 100 ml UD PRN IV 08/30/16 23:30 09/03/16 23:29 Aspirin (Ecotrin Tab) 81 mg DAILY PO 08/31/16 09:00 09/30/16 08:59 Finasteride (Proscar Tab) 5 mg DAILY PO 08/31/16 09:00 09/30/16 08:59 Indapamide (Lozol Tab) 1.25 mg DAILY PO 08/31/16 09:00 09/30/16 08:59 Metoprolol Succinate (Toprol Xl Tab) 25 mg DAILY PO 08/31/16 09:00 09/30/16 08:59 Rivaroxaban (Xarelto Tab) 20 mg DAILY@1700 PO 08/31/16 17:00 09/30/16 16:59 Terazosin HCl (Hytrin Cap) 5 mg DAILY PO 08/31/16 09:00 09/30/16 08:59 Pantoprazole Sodium (Protonix Tab) 40 mg DAILY PO 08/31/16 09:00 09/30/16 08:59 Ondansetron HCl (Zofran Inj) 4 mg Q6H PRN IV 08/31/16 02:45 09/30/16 02:44 08/31/16 07:54 4 MG Morphine Sulfate 2 mg 2 mg Q3H PRN IV 08/31/16 02:45 09/14/16 02:44 Potassium Chloride/Sodium Chloride (Nss + 20meq KCl 1000ml) 1,000 ml @ 100 mls/hr Q10H IV 08/31/16 05:00 09/01/16 00:59 08/31/16 05:06 100 MLS/HR Physical Exam Date Time Temp Pulse Resp B/P Pulse Ox O2 Delivery O2 Flow Rate FiO2 08/31/16 09:18 92 Room Air 08/31/16 07:45 97 Room Air 08/31/16 07:45 36.5 60 18 140/76 92 Room Air 08/31/16 03:25 Room Air 08/31/16 03:25 36.5 87 18 124/71 97 Room Air 08/31/16 02:57 71 18 125/58 96 Room Air 08/31/16 01:57 71 18 125/60 94 Room Air 08/30/16 23:46 73 18 131/56 93 Room Air 08/30/16 22:03 36.4 99 16 148/81 98 Room Air General Appearance: WD/WN, no apparent distress Eyes: bilateral eyes EOMI, bilateral eyes PERRL, bilateral eyes normal inspection ENT: normal ENT inspection, hearing grossly normal, pharynx normal Neck: supple, no adenopathy, thyroid normal, no JVD, no carotid bruits, trachea midline Respiratory: chest non-tender, lungs clear, normal breath sounds, no respiratory distress, no accessory muscle use Cardiovascular: regular rate, rhythm, no edema, no gallop, no JVD, + systolic murmur (2/6 pansystolic murmur loudest at the cardiac apex), + pertinent finding (no tumor plop evident on auscultation) Abdomen: normal bowel sounds, soft, no organomegaly, no pulsatile mass, + distended (mildly), + tenderness (mild and diffuse) Musculoskeletal: normal, normal strength (5/5 throughout), normal tone Neurologic/Psychiatric: 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 nml as tested, no motor/sensory deficits, alert, normal mood/affect, oriented x 3 Skin: normal color, warm/dry, no rash Laboratory Results Last 24 Hours Test 08/30/16 23:30 White Blood Count 13.44 K/uL Red Blood Count 5.23 M/uL Hemoglobin 16.9 g/dL Hematocrit 47.1 % Mean Corpuscular Volume 90.1 fL Mean Corpuscular Hemoglobin 32.3 pg Mean Corpuscular Hemoglobin Concent 35.9 g/dl Platelet Count 252 K/uL Mean Platelet Volume 9.5 fL Neutrophils (%) (Auto) 79.0 % Lymphocytes (%) (Auto) 13.8 % Monocytes (%) (Auto) 5.8 % Eosinophils (%) (Auto) 0.7 % Basophils (%) (Auto) 0.3 % Neutrophils # (Auto) 10.62 K/uL Lymphocytes # (Auto) 1.85 K/uL Monocytes # (Auto) 0.78 K/uL Eosinophils # (Auto) 0.09 K/uL Basophils # (Auto) 0.04 K/uL RDW Standard Deviation 43.0 fL RDW Coefficient of Variation 13.0 % Immature Granulocyte % (Auto) 0.4 % Immature Granulocyte # (Auto) 0.06 K/uL Urine Color DK YELLOW Urine Appearance CLEAR Urine pH 5.5 Urine Specific [place] 1.019 Urine Protein NEG Urine Glucose (UA) NEG Urine Ketones NEG Urine Occult Blood 1+ Urine Nitrite NEG Urine Bilirubin NEG Urine Urobilinogen NEG Urine Leukocyte Esterase NEG Urine WBC (Auto) 1-5 /hpf Urine RBC (Auto) 5-10 /hpf Urine Hyaline Casts (Auto) 0 /lpf Urine Epithelial Cells (Auto) 10-20 /lpf Urine Bacteria (Auto) NEG Sodium Level 141 mmol/L Potassium Level 3.6 mmol/L Chloride Level 102 mmol/L Carbon Dioxide Level 27 mmol/L Anion Gap 12.0 mmol/L Blood Urea Nitrogen 15 mg/dl Creatinine 1.30 mg/dl Est Creatinine Clear Calc Drug Dose 48.6 ml/min Estimated GFR () 57.3 Estimated GFR (Non- 49.4 BUN/Creatinine Ratio 11.8 Random Glucose 137 mg/dl Calcium Level 9.5 mg/dl Total Bilirubin 0.6 mg/dl Direct Bilirubin 0.1 mg/dl Aspartate Amino Transf (AST/SGOT) 30 U/L Alanine Aminotransferase (ALT/SGPT) 41 U/L Alkaline Phosphatase 71 U/L Total Protein 7.9 gm/dl Albumin 3.9 gm/dl Lipase 131 U/L Assessment & Plan ASSESSMENT: Mr. Matthew is an 86 y/o male with a history of hypertension and paroxysmal atrial fibrillation who was incidentally discovered to have a 1.8cm mass in his left atrium on a CT of the chest and abdomen. Based on his medical history and the location of the tumor, it is likely either a left atrial thrombus or a cardiac myxoma, though other cardiac neoplasms are also possible. The patient's risk factors and the fact that this tumor was not identified on echocardiogram 3 months ago would suggest a thrombus, though he is receiving both an oral anticoagulant and antiplatelet therapy. Additionally, there was no tumor plop evident on auscultation, which points away from a myxoma, though the sensitivity of this finding is limited. Further evaluation is necessary to determine the etiology of this mass. PLAN: 1. Left atrial mass -TTE ordered and awaiting results -Further management will be dictated by the etiology of the mass 2. Paroxysmal atrial fibrillation -Continue metoprolol succinate 25 mg po daily -Continue Xarelto 20 mg po daily -Continue aspirin 81mg po daily
--- NOTE | 2016-08-31 12:27 | CARDIOLOGY CONSULTATION ---
DATE OF CONSULTATION: 08/31/2016 DATE OF CONSULTATION: 08/31/2016. PERTINENT HISTORY: Mr. Mtathew is an 86-year-old white male admitted yesterday with a small-bowel obstruction. Workup identified a possible mass in the left atrium. This consultation was ordered to assist in his cardiac management. The patient was in his usual state of health until approximately 2 days prior to presentation when he began to note abdominal discomfort and constipation. He presented to the Emergency Room and CT scan of the abdomen noted jejunal thickening and a resultant small-bowel obstruction. Incidentally, a 1.8 cm in diameter mass was noted along the interatrial septum within the left atrium. The patient carries a history of paroxysmal atrial fibrillation and has been stable on long-term anticoagulation with Xarelto and rate controlled with metoprolol succinate. He has not had a recent paroxysm according to his report. He did have an echocardiogram performed in March 2016 because of a "murmur." He was found to have mild aortic stenosis. Left ventricular systolic function was normal without wall motion abnormalities. No left atrial abnormality was identified. Currently, the patient is resting comfortably without complaints. PAST MEDICAL HISTORY: 1. Hypertension. 2. Mild aortic stenosis. 3. Diastolic dysfunction. 4. Paroxysmal atrial fibrillation. 5. Infrarenal abdominal aortic aneurysm -- 3.4 cm -- August 2016. 6. BPH. 7. History of renal cyst. 8. GERD. MEDICATIONS: 1. Toprol-XL 25 mg daily. 2. Xarelto 20 mg per day. 3. Aspirin 81 mg b.i.d. 4. Lozol 1.25 mg daily. 5. Proscar 5 mg daily. 6. Hytrin 5 mg daily. 7. Protonix 40 mg per day. ALLERGIES: 1. PENICILLIN. 2. SULFA. SOCIAL HISTORY: The patient is and lives with his . He is retired. Does not use tobacco. Alcohol use is occasional. FAMILY HISTORY: Noncontributory. REVIEW OF SYSTEMS: A 10-point review of systems was negative except for that described above. PHYSICAL EXAMINATION: GENERAL: He is a well-developed, well-nourished, white male lying supine in bed without complaints. VITAL SIGNS: Blood pressure is 140/76 with a regular pulse of 78. Respiratory rate is 18. The patient is afebrile at 36.5 Celsius. Saturation is 97% on room air. HEAD, EYES, EARS, NOSE, AND THROAT: Negative. NECK: Supple with full carotid upstrokes. No carotid bruits. Jugular venous pressure is flat at 90 degrees. There is no thyromegaly. CARDIOVASCULAR EXAMINATION: Reveals a nonpalpable PMI and a regular rhythm with distant heart sounds. A 2/6 basal systolic ejection murmur is noted. LUNGS: Clear without rales, rhonchi, or wheezes. ABDOMEN: Notes mild diffuse tenderness but no bruit. Bowel sounds are hypoactive. EXTREMITIES: Reveal intact radial artery and posterior tibial pulses bilaterally. There is no peripheral edema. DATA: CBC notes a hemoglobin of 16.9, hematocrit 47.1, white count 13.4, platelet count 252,000. Electrolytes note a sodium of 141, potassium 3.6, chloride 102, bicarbonate 27, BUN 15, creatinine 1.3, glucose 137. EKG was not performed. A chest x-ray shows no acute disease. Abdominal CT notes thickening of the jejunum with a resultant small-bowel obstruction. There is a 3.6 infrarenal abdominal aneurysm. A 2 cm lesion noted on the atrial septum within the left atrium. Echocardiogram notes normal left ventricle systolic function with an ejection fraction of 60%. There was evidence of mild aortic stenosis and diastolic dysfunction. Significant lipomatous hypertrophy seen of the interatrial septum. IMPRESSION: Mr. Matthew was admitted with a small-bowel obstruction and was incidentally found to have a possible mass within the left atrium. The echocardiogram was interpreted by myself and failed to show a significant abnormality in the left atrium. There is lipomatous hypertrophy of the interatrial septum. The CT scan was reviewed with Dr. Humphreys personally. He felt this abnormality could simply be an artifact. One could consider a transesophageal echocardiogram to further delineate the interatrial septum versus a cardiac MRI. At this point, I see no need to proceed as the patient currently has a small-bowel obstruction. This will be discussed further at a later date. PLAN: 1. Continue current medications. 2. Surgical management per Dr. Karimi. 3. Will discuss further cardiac evaluation with Dr. Browne. MILKA
--- NOTE | 2016-08-31 12:50 | ECHOCARDIOGRAM REPORT ---
*NOTICE TO RECEIVING [employer] AGENCY This information is strictly Confidential and protected under [place] law. [place] law prohibits you from making any further disclosure of this information unless further disclosure is expressly permitted by the written consent of the person to whom it pertains or is authorized by law. A general authorization for the release of medical or other information is not sufficient for this purpose. Hospital accepts no responsibility if the information is made available to any other person, INCLUDING THE PATIENT. Interpretation Summary * Name: GERALDINE SPICER Study Date: 08/31/2016 06:50 AM BP: 124/71 mmHg * Patient Location: [facility] HR: 68 * : 1930 (M/d/yyyy) Gender: Male Height: 71 in * Age: 86 yrs Ethnicity: [place] Weight: 215 lb * Ordering Physician: Melecio Woods * Performed By: Constance Daly RDCS * * Reason For Study: Neoplasm * BSA: 2.2 m2 * -- Conclusions -- * Left ventricular systolic function is normal. * No regional wall motion abnormalities noted. * Ejection Fraction = 65-70%. * There is mild concentric left ventricular hypertrophy. * Grade I diastolic dysfunction, (abnormal relaxation pattern). * Moderate valvular aortic stenosis. * Lipomatous hypertrophy of the interatrial septum is noted (no definite atrial septal mass). Procedure Details * A complete two-dimensional transthoracic echocardiogram was performed (2D, M-mode, Doppler and color flow Doppler). Left Ventricle * The left ventricle is normal in size. * There is mild concentric left ventricular hypertrophy. * Ejection Fraction = 65-70%. * Left ventricular systolic function is normal. * No regional wall motion abnormalities noted. Right Ventricle * The right ventricle is normal size. * The right ventricular systolic function is normal as assessed by tricuspid annular plane systolic excursion (TAPSE) (normal >1.5 cm). Atria * The left atrium is borderline dilated. * Right atrial size is normal. * No ASD detected; PFO is not assessed. * Lipomatous hypertrophy of the interatrial septum is noted. Mitral Valve * The mitral valve leaflets appear thickened, but open well. * No significant mitral valve stenosis. * Significant mitral regurgitation is absent. Tricuspid Valve * The tricuspid valve is not well visualized, but is grossly normal. * Significant tricuspid regurgitation is absent. Aortic Valve * The aortic valve is tricuspid. The leaflet thickness if normal. There is no aortic stenosis, and no significant insufficiency. * Moderate valvular aortic stenosis. * There is no significant aortic regurgitation. Pulmonic Valve * The pulmonary valve is not well seen, but the Doppler examination is normal without significant regurgitation or stenosis. Great Vessels * The aortic root is normal size. * The pulmonary is not well visualized. Pericardium/Pleural * There is no pericardial effusion. Great Vessels * Normal inferior vena cava size and collapsability with sniff indicates a normal right atrial pressure of 3 mmHg Left Ventricular Diastolic Function * Grade I diastolic dysfunction, (abnormal relaxation pattern). MMode 2D Measurements and Calculations IVSd 1.0 cm LVIDd 3.1 cm LVIDs 1.7 cm LVPWd 1.3 cm IVS/LVPW 0.83 FS 43.1 % EDV(Teich) 37.0 ml ESV(Teich) 9.0 ml EF(Teich) 75.7 % EDV(cubed) 28.9 ml ESV(cubed) 5.3 ml EF(cubed) 81.6 % LV mass(C)d 104.9 grams LV mass(C)dI 48.2 grams/m\S\2 CO(Teich) 1.8 l/min CI(Teich) 0.85 l/min/m\S\2 SV(Teich) 28.0 ml SI(Teich) 12.9 ml/m\S\2 CO(cubed) 1.6 l/min CI(cubed) 0.71 l/min/m\S\2 SV(cubed) 23.6 ml SI(cubed) 10.8 ml/m\S\2 Ao root diam 3.0 cm Ao root area 7.0 cm\S\2 ACS 1.1 cm LA dimension 2.8 cm asc Aorta Diam 2.8 cm LA/Ao 0.93 LVOT diam 1.9 cm LVOT area 2.9 cm\S\2 LVAd ap4 23.7 cm\S\2 LVLd ap4 7.6 cm EDV(MOD-sp4) 61.8 ml LVAs ap4 11.4 cm\S\2 LVLs ap4 6.2 cm ESV(MOD-sp4) 17.7 ml EF(MOD-sp4) 71.4 % LVAd ap2 21.1 cm\S\2 LVLd ap2 7.8 cm EDV(MOD-sp2) 49.2 ml LVAs ap2 10.3 cm\S\2 LVLs ap2 6.4 cm ESV(MOD-sp2) 13.9 ml EF(MOD-sp2) 71.7 % CO(MOD-sp4) 2.9 l/min CI(MOD-sp4) 1.3 l/min/m\S\2 SV(MOD-sp4) 44.1 ml SI(MOD-sp4) 20.3 ml/m\S\2 CO(MOD-sp2) 2.3 l/min CI(MOD-sp2) 1.1 l/min/m\S\2 SV(MOD-sp2) 35.3 ml SI(MOD-sp2) 16.2 ml/m\S\2 Doppler Measurements and Calculations MV E max alyssa 82.9 cm/sec MV A max alyssa 137.8 cm/sec MV E/A 0.60 MV V2 max 133.3 cm/sec MV max PG 7.1 mmHg MV V2 mean 74.2 cm/sec MV mean PG 2.6 mmHg MV V2 VTI 38.7 cm MV dec time 0.52 sec Ao V2 max 268.8 cm/sec Ao max PG 28.9 mmHg Ao max PG (full) 24.0 mmHg Ao V2 mean 197.7 cm/sec Ao mean PG 17.5 mmHg Ao V2 VTI 52.2 cm MORRIS(V,A) 1.2 cm\S\2 MORRIS(V,D) 1.2 cm\S\2 LV V1 max PG 4.9 mmHg LV V1 max 111.2 cm/sec SV(Ao) 368.0 ml SI(Ao) 169.2 ml/m\S\2 PA V2 max 85.5 cm/sec PA max PG 2.9 mmHg PA acc slope 612.7 cm/sec\S\2 PA acc time 0.13 sec PA pr(Accel) 18.8 mmHg
[2016-08-31] MEDS ORDERED: RIVAROXABAN 10 MG TAB PO SCH (17:00)
[2016-08-31] MEDS ORDERED: ENOXAPARIN 1.5 MG/KG SQ ONE (19:21)
[2016-08-31] MEDS: METOPROLOL TARTRATE 1 MG/ML VIAL IV. SCH (20:48)
[2016-08-31] MEDS: ENOXAPARIN 100 MG/1ML SYR SQ SCH (20:49)
[2016-09-01] MEDS ORDERED: NSS + 20MEQ KCL 1000ML 1,000 ML IV SCH (01:00)
[2016-09-01 04:00] VITALS: BP 131/66; PULSE 58; TEMP 36.8; O2SAT 97
[2016-09-01] MEDS: METOPROLOL TARTRATE 1 MG/ML VIAL IV. SCH ×3 (04:00→08:00)
--- NOTE | 2016-09-01 07:25 | Progress Note ---
Progress Note Date of Service Sep 01, 2016. Progress Note Patient transferred to telemetry overnight for metoprolol IV to be given as NPO so couldn't take PO. Anticoagulation also switched to Lovenox 1mg/kg Q12H again due to NPO status
--- NOTE | 2016-09-01 07:33 | Surgery Progress Note ---
Surgery Progress Note Date of Service Sep 01, 2016. Subjective + feeling well abd pain gone- hungry, wants to go home soon Objective Vital Signs: Date Time Temp Pulse Resp B/P Pulse Ox O2 Delivery O2 Flow Rate FiO2 09/01/16 04:00 Room Air 09/01/16 04:00 36.8 58 20 131/66 97 09/01/16 04:00 54 09/01/16 00:00 57 08/31/16 23:59 Room Air 08/31/16 23:56 36.7 62 18 117/74 98 Room Air 08/31/16 20:48 92 131/81 08/31/16 20:45 36.4 94 20 131/81 94 Room Air 08/31/16 20:11 36.6 63 17 93 08/31/16 16:30 36.6 63 16 115/72 93 Room Air 08/31/16 16:00 Room Air 08/31/16 09:18 92 Room Air 08/31/16 07:45 97 Room Air 08/31/16 07:45 36.5 60 18 140/76 92 Room Air General Appearance: no apparent distress Respiratory/Chest: no respiratory distress Abdomen: normal bowel sounds, non tender, soft Laboratory Results: Results Past 24 Hours Test 09/01/16 04:44 09/01/16 06:12 Range/Units Assessment & Plan 09/01/16- will order full liquids, give dose of Senokot S, could probably d/c home later today if po tolerated. Cont to follow 08/31/16- adm with abd pain, nausea- possible sbo on CT nonoperative mgt at present. hold NG unless worsens 08/31/16- adm with abd pain, nausea- possible sbo on CT nonoperative mgt at present. hold NG unless worsens
[2016-09-01 07:37] LABS: HEMATOCRIT 44.1 % (42-52); MEAN CELL VOLUME 94.2 fL (80-100); MEAN CORPUSCULAR HEMOGLOBIN 32.3 pg (25-34); MEAN CORPUSCULAR HGB CONC 34.2 g/dl (32-36); MEAN PLATELET VOLUME 9.8 fL (7.4-10.4); PLATELET COUNT 247 K/uL (130-400); RED BLOOD COUNT 4.68 M/uL (4.7-6.1); WHITE BLOOD COUNT 8.21 K/uL (4.8-10.8)
[2016-09-01 07:59] VITALS: BP 128/77; PULSE 66; TEMP 36.3; O2SAT 93
[2016-09-01 08:04] LABS: BUN/CREATININE RATIO 12.9 (10-20); CALCIUM 8.6 mg/dl (8.5-10.1); CREATININE 1.1 mg/dl (0.60-1.40); MAGNESIUM 1.9 mg/dl (1.8-2.4); POTASSIUM 3.7 mmol/L (3.5-5.1)
[2016-09-01] MEDS: PANTOprazole SOD 40 MG TAB PO SCH (08:12)
[2016-09-01] MEDS: FINASTERIDE 5 MG TAB PO SCH (08:12)
[2016-09-01] MEDS: INDAPAMIDE 1.25 MG TAB PO SCH (08:12)
[2016-09-01] MEDS: METOPROLOL SUCC 25MG EXT REL TAB PO SCH ×2 (08:14→08:21)
[2016-09-01] MEDS: ENOXAPARIN 100 MG/1ML SYR SQ SCH (08:16)
[2016-09-01] MEDS: ASPIRIN 81 MG ECTAB PO SCH (08:17)
[2016-09-01] MEDS ORDERED: DOCUSATE SODIUM/SENNA 50/8.6MG TAB PO SCH (09:00)
--- NOTE | 2016-09-01 11:17 | CARDIOLOGY PROGRESS NOTE ---
DATE: 09/01/2016 DATE: 09/01/2016. SUBJECTIVE: Mr. Matthew is resting comfortably in bed without complaints of chest pain or dyspnea. He was transferred to the telemetry unit to receive intravenous metoprolol as the patient was n.p.o. OBJECTIVE: VITAL SIGNS: Blood pressure is 128/77 with a regular pulse of 66. Respiratory rate is 16. The patient is afebrile at 36.3 degrees Celsius. Saturations 93% on room air. NECK: Supple with full carotid upstrokes. No obvious bruits or transmitted murmurs. Jugular venous pressure is flat at 90 degrees. There is no thyromegaly. CARDIOVASCULAR EXAMINATION: Reveals a regular rhythm with a 2/6 crescendo decrescendo systolic murmur heard loudest at the base. S2 is audible at the apex. No diastolic murmurs. LUNGS: Clear without rales, rhonchi, or wheezes. ABDOMEN: Benign without bruits. EXTREMITIES: Reveal intact radial artery pulses bilaterally. There is no peripheral edema. LABORATORY DATA: CBC notes a hemoglobin of 15.1, hematocrit 44.1, white count 8.2, platelet count 247,000. Electrolytes note a sodium of 143, potassium 3.7, chloride 108, bicarb 25, BUN 14, creatinine 1.1, glucose 80. monitoring engineer notes sinus rhythm. IMPRESSION AND PLAN: 1. Lipomatous hypertrophy of the interatrial septum -- etiology of the abnormality identified on recent CT scan. No further workup indicated at this time. 2. Hypertension -- controlled. 3. Mild aortic stenosis. 4. Paroxysmal atrial fibrillation -- tolerating Xarelto and Toprol when taking oral medications without difficulty. 5. Diastolic dysfunction. 6. Infrarenal abdominal aneurysm - 3.4 cm -- August 2016.
[2016-09-01 11:35] VITALS: BP 128/77; PULSE 66; TEMP 36.3; O2SAT 93
[2016-09-01 11:54] VITALS: BP 138/81; PULSE 66; TEMP 36.3; O2SAT 95
[2016-09-01 11:55] VITALS: BP 126/74; PULSE 64; TEMP 36.5; O2SAT 94
[2016-09-01] MEDS ORDERED: SENN8.6T7 PO (13:33)
--- NOTE | 2016-09-01 13:41 | Discharge Instructions ---
Discharge Instructions Date of Service Sep 01, 2016. Admission Reason for Admission: Abdominal Pain, Sbo Discharge Discharge Diagnosis / Problem: Abdominal pain, constipation Discharge Goals Goal(s): Decrease discomfort, Improve function, Diagnostic testing, Therapeutic intervention Activity Recommendations Activity Limitations: resume your previous activity . Instructions / Follow-Up Instructions / Follow-Up You were admitted to the hospital with abdominal pain and constipation. A CAT scan of your abdomen and pelvis showed a possible mild small bowel obstruction. You were kept nothing by mouth and given IV fluids. General surgery was consulted. You began to improve without any further intervention. On the morning of your discharge, your abdominal pain had completely resolved, so Dr. Karimi advanced your diet to full liquids for breakfast, which you tolerated well. You also tolerated a regular diet for lunch well without any nausea, vomiting, or recurrence of abdominal pain. You passed gas and even had a bowel movement prior to discharge. You are now medically stable for discharge. On your CAT scan, you were also found to have a small abdominal aortic aneurysm. This will need to be followed up on with routine imaging every 6 to 12 months to ensure that it is remaining stable in size. Medications: *You may take Senokot 1 tablet by mouth up to twice a day as needed for constipation. It is not recommended that you take this medication every day for prolonged periods of time as you can become dependent on it to move your bowels. *You may resume your other home medications as prescribed. Follow up: *Please follow up with your primary care provider, Dr. Browne, within 1-2 weeks regarding your hospital stay as well as following up on your abdominal aortic aneurysm every 6-12 months. Please seek medical attention if you experience fevers, chills, sweats, chest pain, shortness of breath, nausea, vomiting, abdominal pain, numbness/tingling, or severe constipation. Current Hospital Diet Patient's current hospital diet: AHA Diet (Heart Healthy), Regular Diet Discharge Diet Recommended Diet: AHA Diet (Heart Healthy) Pending Studies Studies pending at discharge: no Laboratory Results Hemoglobin A1c Test 08/10/16 08:10 Range/Units Estimated Average Glucose 114 mg/dl Hemoglobin A1c 5.6 4.5-5.6 % Lipid Panel Test 08/10/16 08:10 Range/Units Triglycerides Level 120 0-150 mg/dl Cholesterol Level 158 0-200 mg/dl HDL Cholesterol 38 mg/dl Cholesterol/HDL Ratio 4.2 LDL Cholesterol, Calculated 96 mg/dl Medical Emergencies . Who to Call and When: Medical Emergencies: If at any time you feel your situation is an emergency, please call 911 immediately. . Non-Emergent Contact Non-Emergency issues call your: Primary Care Provider Call Non-Emergent contact if: you have a fever, your pain is worsening, your pain is concerning you, you have any medication questions . Past History Medical & Surgical History: (1) Abdominal pain (2) Aneurysm of infrarenal abdominal aorta . "Provider Documentation" section prepared by Crystal Nice. VTE Core Measure Inpt VTE Proph given/why not?: Other Anticoagulation (Xarelto)
--- NOTE | 2016-09-01 13:56 | Discharge Summary ---
Discharge Summary Date of Service Sep 01, 2016. (Crystal Nice PA-C) Discharge Summary Admission Date: Aug 31, 2016 at 02:33 Discharge Date: Sep 01, 2016 Discharge Disposition: Home Principal Diagnosis: Abdominal pain, constipation Procedures: Patient Name: GERALDINE SPICER Unit Number: [id number] Dictated: 08/31/16732 Transcribed: 08/31/16732 [facility] Printed Date/Time: [~ rep prt dt]/[~ rep prt tm] [~ rep ct labl] - [~ rep ct ivnm] [facility] [place] [address] Dictated: 08/31/16732 Transcribed: 08/31/16732 [facility] Printed Date/Time: [~ rep prt dt]/[~ rep prt tm] [~ rep ct labl] - [~ rep ct ivnm] Patient: GERALDINE SPICER Address1: [address] [place] [address] [id number] [facility] Rec: [id number] Address2: Acct ID: [id number] [facility] Zip: [place] [address] Date: 1930 Sex: M Room/Bed: [facility] Ref Phy: Ruddy Browne M.D. SC: RADHA Att Phy: Melecio Woods MD Report #: [id number] Ayah Phy: Ruddy Browne M.D. Test: APIV Admit Phy: Melecio Woods MD Barrel Rifler Button: [facility] Interpreting Phy: Jaziel Humphreys MD Diagnosis: ABDOMINAL PAIN, SBO Ordering Phy: Viv Lange PA-C Service Date: 08/30/16 Admit Date: 08/30/1702/06/17 MNE: [id number] CONF: DICTATED BY: Jaziel Humphreys M.D.]] CC: Ruddy Browne M.D. Kedem, Roy ., MD Shears, Suzette M., PA-C Endcc: [~ rep ct add3]] ABDOMEN AND PELVIS CT WITH IV CONTRAST CT DOSE: 762.24 mGy.cm HISTORY: left upper and left lower abdominal pain TECHNIQUE: Multiaxial CT images of the abdomen and pelvis were performed following the use of intravenous contrast. COMPARISON STUDY: Renal ultrasound 08/24/2016. FINDINGS: A 4 mm subpleural nodule within the right lower lobe on image 2. Bibasilar subsegmental atelectasis. The liver, gallbladder, spleen, adrenal glands, and pancreas are unremarkable. There is a right renal cyst. No hydronephrosis. A 3.6 cm infrarenal abdominal aortic aneurysm. The bladder is unremarkable. Colonic diverticulosis. Normal appendix. Short segment of thickened jejunum within the left anterior abdomen on images 48 through 56. This results in the transition point of the low-grade partial small bowel obstruction. There is a 2 cm hypodense filling defect seen within the left atrium abutting the intra-atrial septum. Mild to moderate narrowing within the proximal superior mesenteric artery. IMPRESSION: 1. Focal segment of mild bowel wall thickening involving the jejunum within the left anterior abdomen. This results in a transition point for a low-grade partial small bowel obstruction. This is consistent with a nonspecific enteritis. 2. A 3.6 cm infrarenal abdominal aortic aneurysm. 3. A 2 cm hypodense filling defect seen within the left atrium abutting the endotracheal septum. Echocardiogram can be used for further evaluation to evaluate for a thrombus or lesion such as a myxoma. Electronically signed by: Jaziel Humphreys M.D. 08/31/2016 7:40 AM Dictated Date/Time: 08/31/2016 7:33 AM The status of this report is Signed. Draft = Not yet reviewed or approved by Radiologist. Signed = Reviewed and approved by Radiologist. <AttendingPhy>Melecio Woods MD</AttendingPhy> <FamilyPhy>Ruddy Browne M.D.</ FamilyPhy> <PrimaryPhy>Ruddy Browne M.D.</PrimaryPhy> <UnitNumber>[id number] </UnitNumber> <VisitNumber>[id number]</VisitNumber> <PatientName>GERALDINE SPICER</PatientName> <DateOfBirth>1930</DateOfBirth> <Location>[facility]</ Location> <ServiceDate>08/30/16</ServiceDate> <MNE>ESINDI</MNE> <OrderingPhy> Viv Lange PA-C</OrderingPhy> <OrderingPhyMNE>f rep ord dr garnica</ OrderingPhyMNE> <DictatingPhyMNE>f rep dict dr garnica</DictatingPhyMNE> <CCListMNE> f rep ct mne</CCListMNE> <AdmittingPhyMNE>f pt admit dr garnica</AdmittingPhyMNE> < AttendingPhyMNE>f pt attend dr garnica</AttendingPhyMNE> <ConsultingPhyMNE>f pt consult dr garnica</ConsultingPhyMNE> <FamilyPhyMNE>f pt fam dr garnica</FamilyPhyMNE> <OtherPhyMNE>f pt other dr garnica</OtherPhyMNE> < PrimaryPhyMNE>f pt prim care dr garnica</PrimaryPhyMNE> <ReferringPhyMNE>f pt referring dr garnica</ReferringPhyMNE> (Crystal Nice PA-C) Medication Reconciliation New Medications: Sennosides-Docusate Sodium (Senokot S) 1 Tab Tab 1 TAB PO BID PRN for Constipation for 30 Days, #60 TAB Take 1 tablet by mouth up to twice a day as needed for constipation. Continued Medications: Aspirin (Aspirin Ec) 81 Mg Tab 81 MG PO DAILY Esomeprazole Magnesium (Nexium) 40 Mg Capcr 40 MG PO DAILY, 0 Refills Finasteride (Proscar) 5 Mg Tab 5 MG PO DAILY, TAB Indapamide (Lozol) 1.25 Mg Tab 1.25 MG PO DAILY, 0 Refills Metoprolol Succinate (Metoprolol Succinate ER) 25 Mg Tabcr 1 TAB PO DAILY, #90 Multivitamins/Minerals (Mvi With Minerals) Tab 1 TAB PO DAILY, TAB Rivaroxaban (Xarelto) 20 Mg Tab 1 TAB PO DAILY for 30 Days, #30 TAB 11 Refills Terazosin (Hytrin) 5 Mg Cap 5 MG PO DAILY, 0 Refills Referrals At Discharge Follow up Referrals: Physician Referral - Within 1-2 Weeks with Ruddy Browne M.D. Discharge Exam Patient reports feeling well. He tolerating full liquid diet and regular diet without any nausea, vomiting, or abdominal pain. He has been passing gas and had a small bowel movement. The patient denies fevers, chills, sweats, chest pain, palpitations, claudication, cough, wheezing, shortness of breath, nausea, vomiting, abdominal pain, dysuria, hematuria, urinary retention, paralysis, weakness, numbness and tingling. Review of Systems: Constitutional: No chills, No fatigue, No fever, No sweats, No weakness Eyes: No diplopia, No discharge, No worsening of vision ENT: No hearing loss, No sore throat, No trouble swallowing Respiratory: No cough, No shortness of breath, No wheezing Cardiovascular: No chest pain, No claudication, No palpitations Abdomen: No constipation, No nausea, No pain, No vomiting Musculoskeletal: No calf pain, No joint pain, No muscle pain Genitourinary - Male: No dysuria, No hematuria, No urinary retention Neurologic: No numbness/tingling, No paralysis, No weakness Integumentary: No color change, No itch, No rash Physical Exam: General Appearance: WD/WN, no apparent distress Eyes: normal inspection, PERRL, EOMI ENT: normal ENT inspection, hearing grossly normal, pharynx normal Neck: supple, no JVD, trachea midline Respiratory/Chest: normal breath sounds, no respiratory distress, + crackles (mild crackles L base) Cardiovascular: regular rate, rhythm, no gallop, + systolic murmur Abdomen / GI: normal bowel sounds, non tender, soft Extremities: normal inspection, no calf tenderness, no pedal edema Neurologic/Psychiatric: alert, normal mood/affect, oriented x 3 Skin: normal color, warm/dry, no rash (Crystal Nice ., PA-C) Hospital Course 86 y/o male with a history of HTN, paroxysmal a-fib, and BPH who presented to the ED with abdominal pain and constipation. He denied any N/V/D and fevers. Pt had been passing gas but denies any BM for 2 days. Abdominal/pelvis CT showed a low-grade partial SBO and enteritis. CT also showed 3.6 cm infrarenal AAA and possible left atrial mass, concerning for possible thrombus vs myxoma. Pt is on Xarelto for AC due to a-fib. Partial small bowel obstruction--resolved -Admitted to med/surg. Transferred to telemetry to receive IV metoprolol as he was NPO, however pt is stable and was moved back to med/surg prior to discharge -General surgery consulted, appreciate recs: NPO, IVF, no further intervention for now unless sx worsen. Morning of 09/01 abdominal pain had resolved. Dr. Karimi advanced from NPO to full liquid diet. October d/c to home if tolerates PO well. -Pt tolerated full liquid diet for breakfast well. Tolerated regular diet for lunch well without N/V or abdominal pain -Passed gas and had a small BM prior to discharge -Pain control was with IV morphine Atrial mass -Echo showed mild LVH, grade 1 diastolic dysfunction, moderate aortic stenosis, and lipomatous hypertrophy of interatrial septum with no definite atrial mass -Cardiology consulted, appreciate recs: no definite mass, continue outpatient regimen. No further intervention/work up needed from cardiac standpoint. Infrarenal AAA noted. Paroxysmal a-fib--currently SR -Continue metoprolol succinate 25 mg PO qd and Xarelto Infrarenal AAA -Recommend follow up every 6-12 months HTN--stable -Continue metoprolol as above and indapamide 1.25 mg PO qd BPH -Continue Hytrin 5 mg PO qd DVT prophylaxis -Xarelto Code Status -Level I, FULL RESUSCITATION STATUS Dispo -Pt medically stable for discharge Total Time Spent: Greater than 30 minutes This includes examination of the patient, discharge planning, medication reconciliation, and communication with other providers. (Crystal Nice ., PA-C) I agree with PA assessment and plan and have seen and examined pt myself VSS Labs reviewed Denies any pain or discomfort Resting comfortably in bed Abd: soft NT ND Agree with discharge home at this time (Ta Malin D.OAmanda) Discharge Instructions Please refer to the electronic Patient Visit Report (Discharge Instructions) for additional information. (Crystal Nice ., PA-C) Additional Copies To Ruddy Browne M.D.
[2016-09-01 13:58] VITALS: BP 126/74; PULSE 64; TEMP 36.5; O2SAT 94
[2016-09-01] MEDS ORDERED: ENOXAPARIN 1.5 MG/KG SQ SCH (18:00)
[2016-09-01] MEDS ORDERED: METOPROLOL SUCC 25MG EXT REL TAB PO SCH (21:00)
== END 2016-09-01 14:15 | disposition home or self-care (01) | DRG 390 ==
LOC: ENRESERVTM → CANRESERV → ENRESERVDT → C.EDB 22:02 → C.MSN 08-31 02:33 → C.2T 08-31 20:34 → C.MS2W 09-01 09:58
PROVIDERS: ADMIT Internal Medicine; ATTEND Internal Medicine
DX: K56.60 Unspecified intestinal obstruction (principal); I48.0 Paroxysmal atrial fibrillation; K59.00 Constipation, unspecified; N40.0 Benign prostatic hyperplasia without lower urinary tract symptoms; I10 Essential (primary) hypertension; I71.4 Abdominal aortic aneurysm, without rupture; I35.0 Nonrheumatic aortic (valve) stenosis; D17.79 Benign lipomatous neoplasm of other sites; N28.1 Cyst of kidney, acquired; R91.1 Solitary pulmonary nodule; K21.9 Gastro-esophageal reflux disease without esophagitis; Z79.82 Long term (current) use of aspirin; Z79.899 Other long term (current) drug therapy; Z79.01 Long term (current) use of anticoagulants

== ENCOUNTER → 2016-10-13 | Outpatient (CLI) | payer BC, OTHER ==
[~2016-10-13] MED LIST changes: -ASPCH81 PO; +ASPI81TA28 PO; +RIVA1TAB4 PO; +SENN8.6T7 PO; +TPRSR/25 PO
--- NOTE | 2016-10-13 15:40 | DIAGNOSTIC IMAGING REPORT ---
ABDOMEN AND PELVIS CT WITH ORAL CONTRAST CT DOSE: 813.15 mGy.cm HISTORY: Obstruction. Pain. K56.69 Small bowel [id number] TECHNIQUE: Multiaxial CT images of the abdomen and pelvis were performed following the use of oral contrast. COMPARISON STUDY: 08/31/2016 FINDINGS: Unchanging bibasilar parenchymal infiltrative change. Mild dependent bibasilar atelectatic change. Liver spleen and pancreas are unchanged. Gallbladder is negative for distention. Pancreas is uniform. There is right renal cyst unchanged. There is no evidence renal hydronephrosis. There is infrarenal aneurysm of the abdominal aorta is unchanged. Bowel pattern is improved. Edematous change and wall thickening of the small bowel in the left flank region has resolved. Bowel pattern again is nonobstructive. Scattered colonic diverticulosis again noted. There is no evidence for acute diverticulitis. Bladder is midline. IMPRESSION: Improved exam. 2. No evidence for obstructive change. 3. No evidence currently for bowel wall thickening. 4. Right renal cyst unchanged. 6. Bibasilar interstitial infiltrative change unaltered. Electronically signed by: Irving Lange M.D. 10/13/2016 3:38 PM Dictated Date/Time: 10/13/2016 3:33 PM
== END | disposition home or self-care (01) ==
LOC: C.CTS 13:23
PROVIDERS: ATTEND Internal Medicine
DX: K56.69 Other intestinal obstruction (principal)

== ENCOUNTER → 2016-12-07 | Outpatient (CLI) | payer BC, OTHER ==
[2016-12-07 15:13] LABS: URINE APPEARANCE CLEAR (CLEAR); URINE BILIRUBIN NEG (NEG); URINE COLOR YELLOW; URINE NITRITE NEG (NEG); URINE PH 5.5 (4.5-7.5); URINE SPECIFIC GRAVITY 1.013 (1.000-1.030); UROBILINOGEN NEG (NEG)
[2016-12-07 15:24] LABS: MANUAL MICROSCOPIC REQUIRED? NO; REVIEW REQ? NO
== END | disposition home or self-care (01) ==
LOC: C.LAB1850 12:56
PROVIDERS: ATTEND Internal Medicine
DX: K21.9 Gastro-esophageal reflux disease without esophagitis (principal)

== ENCOUNTER → 2016-12-09 | Outpatient (CLI) | payer BC, OTHER | END | disposition home or self-care (01) | LOC: C.LABSPEC 15:00 | PROVIDERS: ATTEND Internal Medicine | DX: K21.9 Gastro-esophageal reflux disease without esophagitis (principal) ==

== ENCOUNTER → 2017-06-08 | Outpatient (CLI) | payer BC, OTHER ==
[2017-06-08 09:03] LABS: BASO % 1.1 %; BASO ABS # 0.09 K/uL (0-0.2); COMPLETE YES; HEMATOCRIT 44.1 % (42-52); IG% 0.6 %; LYMPH ABS # 2.62 K/uL (1.2-3.4); MEAN CELL VOLUME 93.8 fL (80-100); MEAN CORPUSCULAR HEMOGLOBIN 32.6 pg (25-34); MEAN CORPUSCULAR HGB CONC 34.7 g/dl (32-36); MEAN PLATELET VOLUME 9.9 fL (7.4-10.4); MONO % 10.6 %; NEUT % 51.7 %; PLATELET COUNT 236 K/uL (130-400); WHITE BLOOD COUNT 8.19 K/uL (4.8-10.8)
[2017-06-08 09:11] LABS: BLOOD UREA NITROGEN 16 mg/dl (7-18); BUN/CREATININE RATIO 13.1 (10-20); CALCIUM 9.2 mg/dl (8.5-10.1); CARBON DIOXIDE 25 mmol/L (21-32); CHLORIDE 105 mmol/L (98-107); CHOLESTEROL 160 mg/dl (0-200); CREATININE 1.24 mg/dl (0.60-1.40); GLUCOSE 90 mg/dl (70-99); SODIUM 138 mmol/L (136-145); TRIGLYCERIDES 94 mg/dl (0-150); VERY LOW DENSITY LIPOPROT CALC 19 mg/dl
[2017-06-08 09:15] LABS: CHOLESTEROL/HDL RATIO 3.7; HDL CHOLESTEROL 43 mg/dl; LDL CHOLESTEROL CALCULATED 98 mg/dl
[2017-06-08 09:54] LABS: ESTIMATED AVERAGE GLUCOSE 117 mg/dl; HA1C FLAG Normal (Normal)
== END | disposition home or self-care (01) ==
LOC: C.LABVPSUW 08:47
PROVIDERS: ATTEND Internal Medicine
DX: I10 Essential (primary) hypertension (principal); I35.0 Nonrheumatic aortic (valve) stenosis; K21.9 Gastro-esophageal reflux disease without esophagitis; R31.9 Hematuria, unspecified; R73.9 Hyperglycemia, unspecified

== ENCOUNTER 2017-06-24 07:14 | Emergency (ER) | payer BC, OTHER ==
[~2017-06-24] VITALS: Ht 177.8 cm; Wt 98.3 kg
[2017-06-24] MEDS ORDERED: PANT40TA PO (07:24)
[2017-06-24 07:28] VITALS: O2SAT 93; Ht 177.8 cm; Wt 98.3 kg
--- NOTE | 2017-06-24 07:38 | EMERGENCY ROOM VISIT NOTE ---
History Report prepared by Rosaura: Richard Young Under the Supervision of: Dr. Cristobal Foreman M.D. First contact with patient: 07:24 Stated Complaint: WEAKNESS History of Present Illness The patient is an 87 year old male who presents to the Emergency Room via EMS from the [facility] with complaints of persistent weakness that started last night. He states that he had one episode where he sat down on the floor, and did not have enough strength to get back up, so his had to put the patient in a chair wheel him back into bed due to the weakness. He states that his strength has still not returned. He adds that his mouth feels dry, and his family notes that the patient's speech seems a bit off. The patient notes that he had chills last night, but the chills have gone away since then. He states that he has been eating and drinking fine recently. He denies any pain, cough, runny nose, leg pain, urinary symptoms, or bowel problems. The patient says that he takes Xarelto daily and has a history of intermittent atrial fibrillation. Source of History: patient, family Onset: Last night Position: other (global - weakness) Symptom Intensity: could not get off floor Timing: other (persistent) Associated Symptoms: + chills (resolved), No cough, No urinary symptoms Note: Associated symptoms: Mouth feels dry. Family states patient's speech seems off. Denies runny nose, leg pain, bowel problems. Review of Systems All systems have been listed, reviewed, and are negative other than those previously mentioned. Please see Additional Medical History Sheet. Past Medical & Surgical Medical Problems: (1) Abdominal pain (2) Hematuria (3) Renal cyst (4) SBO (small bowel obstruction) (5) UTI (urinary tract infection) Family History Family history omitted secondary to patient's advanced age. Social History Smoking Status: Never Smoker Marital Status: Housing Status: lives with family Occupation Status: retired Current/Historical Medications Scheduled Aspirin (Aspirin Ec), 81 MG PO DAILY Finasteride (Proscar), 5 MG PO DAILY Indapamide (Lozol), 1.25 MG PO DAILY Metoprolol Succinate (Metoprolol Succinate ER), 25 MG PO DAILY Multivitamins/Minerals (Mvi With Minerals), 1 TAB PO DAILY Pantoprazole (Protonix), 40 MG PO DAILY Potassium Chloride Microencaps (Potassium Chloride Er), 1 TAB PO DAILY Rivaroxaban (Xarelto), 1 TAB PO DAILY Terazosin (Hytrin), 5 MG PO DAILY Allergies Coded Allergies: Penicillins (Verified Allergy, Intermediate, HIVES, 06/24/17) Sulfamethoxazole (Verified Allergy, Intermediate, RASH ITCHING, 06/24/17) Physical Exam Vital Signs Date Time Temp Pulse Resp B/P (MAP) Pulse Ox O2 Delivery O2 Flow Rate FiO2 06/24/17 14:13 62 16 110/72 95 Room Air 06/24/17 12:50 75 16 109/56 95 Room Air 06/24/17 12:43 73 06/24/17 10:50 76 18 134/72 96 Room Air 06/24/17 10:08 36.8 82 18 129/61 96 Room Air 06/24/17 08:56 36.8 74 18 110/55 96 Room Air 06/24/17 07:28 36.8 80 18 120/56 93 Room Air 06/24/17 07:28 93 Room Air 06/24/17 07:24 81 Physical Exam GENERAL: Patient awake, alert, oriented x 3. Patient is appropriate. Patient follows commands. Patient does not appear toxic. Patient is adequately hydrated and well-nourished. SKIN: No erythema, pallor, cyanosis or rash HEENT: Normal head, pupils equal, reactive to light and accommodation. Ears normal. Oral cavity and posterior pharynx appear normal. Neck: Without adenopathy, no neck vein distention. LUNGS: Clear to auscultation. No wheezes, no rales, no rhonchi. HEART: Grade 3/6 systolic murmur. No gallops. No rubs ABDOMEN: No masses, no rebound, no hepatomegaly or splenomegaly. EXTREMITIES: No signs of trauma. No pedal or pretibial edema. No calf or thigh tenderness. NEUROLOGIC: Cranial nerves II-XII within normal limits. No gross motor sensory function deficits. Cerebellar testing was negative. Medical Decision & Procedures ER Provider Diagnostic Interpretation: Radiology results as stated below per my review and radiologist interpretation: I compared the chest x-ray with the patient's chest x-ray from December 2014. HEAD CT NONCONTRAST CT DOSE: 614.27 mGy.cm HISTORY: Right leg weakness. Slurred speech. TECHNIQUE: Multiaxial CT images of the head were performed without the use of intravenous contrast. Automated exposure control was utilized for this study. A dose lowering technique was utilized adhering to the principles of ALARA. Comparison: Head CT 01/01/2015. Findings: The paranasal sinuses and mastoid air cells are clear. The calvarium and skull base are intact. There is no mass, hematoma, midline shift, acute infarct. White matter hypodensity is nonspecific but suggestive of microvascular ischemic change. The ventricles and sulci demonstrate mild age-related involutional changes. Impression: No significant change compared to the prior study. No acute intracranial abnormality. Electronically signed by: Jaziel Humphreys M.D. 06/24/2017 8:38 AM Dictated Date/Time: 06/24/2017 8:17 AM CHEST ONE VIEW PORTABLE CLINICAL HISTORY: weakness mental status change COMPARISON STUDY: 08/30/2016 FINDINGS: The bones soft tissues and hemidiaphragms are normal. The cardiomediastinal silhouette is normal. The lungs are clear. The pulmonary vasculature is normal. IMPRESSION: Negative chest. The above report was generated using voice recognition software. It may contain grammatical, syntax or spelling errors. Electronically signed by: Irving Lange M.D. 06/24/2017 9:49 AM Dictated Date/Time: 06/24/2017 9:48 AM Laboratory Results 06/24/17 07:55 Red Blood Count 4.91, Mean Corpuscular Volume 91.6, Mean Corpuscular Hemoglobin 32.8, Mean Corpuscular Hemoglobin Concent 35.8, Mean Platelet Volume 9.7, Neutrophils (%) (Auto) 93.0, Lymphocytes (%) (Auto) 3.0, Monocytes (%) (Auto) 3.2, Eosinophils (%) (Auto) 0.2, Basophils (%) (Auto) 0.1, Neutrophils # (Auto) 13.49, Lymphocytes # (Auto) 0.44, Monocytes # (Auto) 0.46, Eosinophils # (Auto) 0.03, Basophils # (Auto) 0.02 06/24/17 07:55 Test 06/24/17 07:55 06/24/17 09:47 06/24/17 12:25 06/24/17 13:31 White Blood Count 14.51 K/uL (4.8-10.8) Red Blood Count 4.91 M/uL (4.7-6.1) Hemoglobin 16.1 g/dL (14.0-18.0) Hematocrit 45.0 % (42-52) Mean Corpuscular Volume 91.6 fL (80-100) Mean Corpuscular Hemoglobin 32.8 pg (25-34) Mean Corpuscular Hemoglobin Concent 35.8 g/dl (32-36) Platelet Count 204 K/uL (130-400) Mean Platelet Volume 9.7 fL (7.4-10.4) Neutrophils (%) (Auto) 93.0 % Lymphocytes (%) (Auto) 3.0 % Monocytes (%) (Auto) 3.2 % Eosinophils (%) (Auto) 0.2 % Basophils (%) (Auto) 0.1 % Neutrophils # (Auto) 13.49 K/uL (1.4-6.5) Lymphocytes # (Auto) 0.44 K/uL (1.2-3.4) Monocytes # (Auto) 0.46 K/uL (0.11-0.59) Eosinophils # (Auto) 0.03 K/uL (0-0.5) Basophils # (Auto) 0.02 K/uL (0-0.2) RDW Standard Deviation 44.8 fL (36.4-46.3) RDW Coefficient of Variation 13.4 % (11.5-14.5) Immature Granulocyte % (Auto) 0.5 % Immature Granulocyte # (Auto) 0.07 K/uL (0.00-0.02) Anion Gap 9.0 mmol/L (3-11) Est Creatinine Clear Calc Drug Dose 45.0 ml/min Estimated GFR () 53.8 Estimated GFR (Non- 46.5 BUN/Creatinine Ratio 12.9 (10-20) Lactic Acid Level 2.5 mmol/L (0.4-2.0) Calcium Level 9.3 mg/dl (8.5-10.1) Total Bilirubin 0.7 mg/dl (0.2-1) Aspartate Amino Transf (AST/SGOT) 36 U/L (15-37) Alanine Aminotransferase (ALT/SGPT) 36 U/L (12-78) Alkaline Phosphatase 69 U/L (45-117) Total Protein 7.5 gm/dl (6.4-8.2) Albumin 4.0 gm/dl (3.4-5.0) Globulin 3.5 gm/dl (2.5-4.0) Albumin/Globulin Ratio 1.1 (0.9-2) Urine Color YELLOW Urine Appearance CLEAR (CLEAR) Urine pH 5.0 (4.5-7.5) Urine Specific Te[place] 1.013 (1.000-1.030) Urine Protein NEG (NEG) Urine Glucose (UA) NEG (NEG) Urine Ketones NEG (NEG) Urine Occult Blood 1+ (NEG) Urine Nitrite NEG (NEG) Urine Bilirubin NEG (NEG) Urine Urobilinogen NEG (NEG) Urine Leukocyte Esterase NEG (NEG) Urine WBC (Auto) 1-5 /hpf (0-5) Urine RBC (Auto) 5-10 /hpf (0-4) Urine Hyaline Casts (Auto) 1-5 /lpf (0-5) Urine Epithelial Cells (Auto) >30 /lpf (0-5) Urine Bacteria (Auto) NEG (NEG) Urine Renal Epithelial Cells 0-5 /lpf (0-5) Bedside Lactic Acid Venous 3.19 mmol/L (0.90-1.70) Bedside Troponin I 0.030 ng/ml (0-0.045) Laboratory results as stated above per my review. Medications Administered Medications (Trade) Dose Ordered Sig/Eliezer Route Start Time Stop Time Status Last Admin Dose Admin Sodium Chloride 2,000 ml @ 1,000 mls/hr Q2H ONCE IV 06/24/17 09:45 06/24/17 11:44 DC 06/24/17 09:51 1,000 MLS/HR ECG Indication: weakness Rate (beats per minute): 80 Rhythm: sinus rhythm Findings: 1st degree AV block, RBBB, other (T-wave abnormality) Comparison ECG Date: compared to January 01 2015, T-wave abnormality is unchanged ED Course 0724: Past medical records reviewed. The patient was evaluated in room B3B. A complete history and physical examination was performed. 0945: Ordered NSS 2000 ml @ 1000 mls/hr IV. 0950: I reevaluated the patient and he is feeling okay. 1154: I reevaluated the patient and he is feeling better. The nurse informed me that the patient has a swollen right arm from an IV infiltrate in his right vein. We will do a repeat POC lactate. 1341: Ordered Magnesium Sulfate 1 gm/Prmx 100 ml @ 100 mls/hr IV, Klor-Con Pwd 40 meq PO. 1440: Upon reevaluation, the patient appeared to have improvement of his symptoms. I discussed today's findings with him. He verbalized agreement of the treatment plan. He was discharged home. Medical Decision I considered multiple diagnoses including TIA, CVA, viral/bacterial infection including: pneumonia, UTI, sepsis. Multiple labs, EKG and imaging were obtained. Clinically the patient appears dehydrated. The patient has no neurologic findings consistent with acute CVA or TIA. The patient's initial lactic acid was elevated. White count was also slightly high. The patient was given 2 L of fluid and was repeated. His lactic acid remain elevated. Troponin was not elevated. The patient's potassium is slightly low. EKGs reveal no acute findings. Chest x-ray was unremarkable. Urine was clean. The patient was also evaluated by medicine. The patient was here for over 7 hours and was observed. The patient felt significantly better and was able to walk around the department without difficulty. Despite his elevated lactic acid I do not believe the patient is septic. I believe this is secondary to dehydration. I believe the patient can safely return home. He will continue to push fluids. He will need close follow -up by his family physician. Medication Reconcilliation Current Medication List: was personally reviewed by me Blood Pressure Screening Patient's blood pressure: Normal blood pressure Impression Primary Impression: Dehydration Additional Impression: Hypokalemia Scribe Attestation The scribe's documentation has been prepared under my direction and personally reviewed by me in its entirety. I confirm that the note above accurately reflects all work, treatment, procedures, and medical decision making performed by me. Departure Information Dispostion Home / Self-Care Prescriptions Potassium Chloride Microencaps (POTASSIUM CHLORIDE ER) 10 Meq Tab 1 TAB PO DAILY for 30 Days, #30 TAB 5 Refills Prov: Cristobal Foreman M.D. 06/24/17 Referrals [facility] (PCP) Additional Instructions Drink at least 3 quarts of liquid over the next 24 hours. Take potassium as prescribed. Follow-up with your family physician within the next 7 days. Problem Qualifiers
[2017-06-24 08:05] LABS: BASO % 0.1 %; BASO ABS # 0.02 K/uL (0-0.2); EOS % 0.2 %; EOS ABS # 0.03 K/uL (0-0.5); HEMOGLOBIN 16.1 g/dL (14.0-18.0); IG# 0.07 K/uL (0.00-0.02); LYMPH ABS # 0.44 K/uL (1.2-3.4); MEAN CELL VOLUME 91.6 fL (80-100); MEAN CORPUSCULAR HEMOGLOBIN 32.8 pg (25-34); MEAN CORPUSCULAR HGB CONC 35.8 g/dl (32-36); MEAN PLATELET VOLUME 9.7 fL (7.4-10.4); MONO % 3.2 %; MONO ABS # 0.46 K/uL (0.11-0.59); NEUT ABS # 13.49 K/uL (1.4-6.5); PLATELET COUNT 204 K/uL (130-400); RED CELL DISTRIBUTION WIDTH CV 13.4 % (11.5-14.5); RED CELL DISTRIBUTION WIDTH SD 44.8 fL (36.4-46.3); WHITE BLOOD COUNT 14.51 K/uL (4.8-10.8)
[2017-06-24 08:25] LABS: CALCIUM 9.3 mg/dl (8.5-10.1); CREATININE 1.36 mg/dl (0.60-1.40)
[2017-06-24 08:28] LABS: TOTAL PROTEIN 7.5 gm/dl (6.4-8.2)
--- NOTE | 2017-06-24 08:39 | DIAGNOSTIC IMAGING REPORT ---
HEAD CT NONCONTRAST CT DOSE: 614.27 mGy.cm HISTORY: Right leg weakness. Slurred speech. TECHNIQUE: Multiaxial CT images of the head were performed without the use of intravenous contrast. Automated exposure control was utilized for this study. A dose lowering technique was utilized adhering to the principles of ALARA. Comparison: Head CT 01/01/2015. Findings: The paranasal sinuses and mastoid air cells are clear. The calvarium and skull base are intact. There is no mass, hematoma, midline shift, acute infarct. White matter hypodensity is nonspecific but suggestive of microvascular ischemic change. The ventricles and sulci demonstrate mild age-related involutional changes. Impression: No significant change compared to the prior study. No acute intracranial abnormality. Electronically signed by: Jaziel Humphreys M.D. 06/24/2017 8:38 AM Dictated Date/Time: 06/24/2017 8:17 AM
[2017-06-24] MEDS ORDERED: SODIUM CHLORIDE 0.9% 1000ML 2,000 ML IV ONE (09:45)
--- NOTE | 2017-06-24 09:51 | DIAGNOSTIC IMAGING REPORT ---
CHEST ONE VIEW PORTABLE CLINICAL HISTORY: weakness mental status change COMPARISON STUDY: 08/30/2016 FINDINGS: The bones soft tissues and hemidiaphragms are normal. The cardiomediastinal silhouette is normal. The lungs are clear. The pulmonary vasculature is normal. IMPRESSION: Negative chest. The above report was generated using voice recognition software. It may contain grammatical, syntax or spelling errors. Electronically signed by: Irving Lange M.D. 06/24/2017 9:49 AM Dictated Date/Time: 06/24/2017 9:48 AM
[2017-06-24] MEDS ORDERED: POTASSIUM CHLORIDE PWD 20 MEQ PACK PO STA (13:41)
[2017-06-24] MEDS ORDERED: MAGNESIUM SULFATE 1GM / D5W 1 GM in PREMIXED IN D5W 100 ML IV STA (13:41)
--- NOTE | 2017-06-24 14:11 | Medical Consult ---
Consultation Date of Consultation: Jun 24, 2017. Attending Physician: History of Present Illness 87 y/o M Hx , diastolic dysfunction, HTN, paroxysmal AF. The pt presented to the hospital primarily with fatigue and may have had some SOB earlier in the day. Initial labs revealed mild leukocytosis and an elevated lactic acid. He denies a cough, CP, n/v, diarrhea, dysuria or fevers. The pt appeared to be dehydrated at the time of arrival. He was provided with 2L of fluid which lead to clinical improvement. His lactic acid remained elevated on a repeat. He is currently asymptomatic. Past Medical/Surgical History 1) SBO 2) Lypomatous hypertrophy of interatrial septum 3) Moderate aortic stenosis 4) HTN 5) BPH 6) Grade 1 diastolic dysfunction 7) Infrarenal AAA 8) Paroxysmal AF Family History Noncontributory Social History Smoking Status: Never Smoker Marital Status: Housing Status: lives with family Occupation Status: retired Allergies Coded Allergies: Penicillins (Unverified Allergy, Severe, HIVES, 08/30/16) Sulfamethoxazole (Unverified Allergy, Severe, RASH ITCHING, 08/30/16) Review of Systems Constitutional: + weakness, No fever, No chills, No sweats Eyes: No worsening of vision ENT: No hearing loss, No unusual epistaxis, No nasal symptoms Respiratory: + shortness of breath, No cough, No sputum, No wheezing Cardiovascular: No chest pain, No orthopnea, No PND Abdomen: No pain, No nausea, No vomiting Musculoskeletal: No joint pain Genitourinary - Male: No hematuria, No dysuria Neurologic: + weakness, No memory loss, No paralysis Psychiatric: No depression symptoms Endocrine: + fatigue Hematologic / Lymphatic: No abnormal bleeding/bruising Integumentary: No rash Allergic / Immunologic: No environmental allergies Physical Exam Date Time Temp Pulse Resp B/P (MAP) Pulse Ox O2 Delivery O2 Flow Rate FiO2 06/24/17 12:50 75 16 109/56 95 Room Air 06/24/17 12:43 73 06/24/17 10:50 76 18 134/72 96 Room Air 06/24/17 10:08 36.8 82 18 129/61 96 Room Air 06/24/17 08:56 36.8 74 18 110/55 96 Room Air 06/24/17 07:28 36.8 80 18 120/56 93 Room Air 06/24/17 07:28 93 Room Air 06/24/17 07:24 81 General Appearance: WD/WN, no apparent distress Head: normocephalic Eyes: normal inspection ENT: normal ENT inspection, pharynx normal Neck: supple, no JVD Respiratory/Chest: chest non-tender, lungs clear, normal breath sounds Cardiovascular: regular rate, rhythm, no edema, no gallop Abdomen/GI: normal bowel sounds, non tender, soft Back: normal inspection, no CVA tenderness, no muscle spasm Extremities/Musculoskelatal: normal inspection, no calf tenderness, normal capillary refill, no pedal edema, normal range of motion 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, no motor/sensory deficits, alert Skin: normal color Laboratory Results Last 24 Hours Test 06/24/17 07:55 06/24/17 09:47 06/24/17 12:25 White Blood Count 14.51 K/uL Red Blood Count 4.91 M/uL Hemoglobin 16.1 g/dL Hematocrit 45.0 % Mean Corpuscular Volume 91.6 fL Mean Corpuscular Hemoglobin 32.8 pg Mean Corpuscular Hemoglobin Concent 35.8 g/dl Platelet Count 204 K/uL Mean Platelet Volume 9.7 fL Neutrophils (%) (Auto) 93.0 % Lymphocytes (%) (Auto) 3.0 % Monocytes (%) (Auto) 3.2 % Eosinophils (%) (Auto) 0.2 % Basophils (%) (Auto) 0.1 % Neutrophils # (Auto) 13.49 K/uL Lymphocytes # (Auto) 0.44 K/uL Monocytes # (Auto) 0.46 K/uL Eosinophils # (Auto) 0.03 K/uL Basophils # (Auto) 0.02 K/uL RDW Standard Deviation 44.8 fL RDW Coefficient of Variation 13.4 % Immature Granulocyte % (Auto) 0.5 % Immature Granulocyte # (Auto) 0.07 K/uL Sodium Level 139 mmol/L Potassium Level 3.0 mmol/L Chloride Level 104 mmol/L Carbon Dioxide Level 25 mmol/L Anion Gap 9.0 mmol/L Blood Urea Nitrogen 18 mg/dl Creatinine 1.36 mg/dl Est Creatinine Clear Calc Drug Dose 45.0 ml/min Estimated GFR () 53.8 Estimated GFR (Non- 46.5 BUN/Creatinine Ratio 12.9 Random Glucose 92 mg/dl Lactic Acid Level 2.5 mmol/L Calcium Level 9.3 mg/dl Total Bilirubin 0.7 mg/dl Aspartate Amino Transf (AST/SGOT) 36 U/L Alanine Aminotransferase (ALT/SGPT) 36 U/L Alkaline Phosphatase 69 U/L Total Protein 7.5 gm/dl Albumin 4.0 gm/dl Globulin 3.5 gm/dl Albumin/Globulin Ratio 1.1 Urine Color YELLOW Urine Appearance CLEAR Urine pH 5.0 Urine Specific Mathews 1.013 Urine Protein NEG Urine Glucose (UA) NEG Urine Ketones NEG Urine Occult Blood 1+ Urine Nitrite NEG Urine Bilirubin NEG Urine Urobilinogen NEG Urine Leukocyte Esterase NEG Urine WBC (Auto) 1-5 /hpf Urine RBC (Auto) 5-10 /hpf Urine Hyaline Casts (Auto) 1-5 /lpf Urine Epithelial Cells (Auto) >30 /lpf Urine Bacteria (Auto) NEG Urine Renal Epithelial Cells 0-5 /lpf Bedside Lactic Acid Venous 3.19 mmol/L Assessment & Plan 87 y/o M Hx , diastolic dysfunction, HTN, paroxysmal AF. The pt presented to the hospital primarily with fatigue and may have had some SOB earlier in the day. Initial labs revealed mild leukocytosis and an elevated lactic acid. He denies a cough, CP, n/v, diarrhea, dysuria or fevers. The pt appeared to be dehydrated at the time of arrival. He was provided with 2L of fluid which lead to clinical improvement. His lactic acid remained elevated on a repeat. He is currently asymptomatic. 1) Fatigue, leukocytosis, lactic elevation. The pt has not been hypotensive or febrile and is asymptomatic following fluid resuscitation. As his K was low and his creatinine was slightly above baseline, this may be attributed to dehydration. They repeat lactic acid may not reflect reperfusion for an extended period. As we have no evidence of infection at present, we would recommend checking a troponin and if this is WNL, would consider DC. Family should be instructed to watch for signs of infection and maintain hydration, perhaps including an electrolyte replacement drink every few days 2) Hypokalemia - received 40 MEQ Kcl and 1G Mag 3) Paroxysmal AF - pt is anticoagulated and has been in a sinus rhythm throughout his ER stay 4) Grade 1 diastolic dysfunction - volume depleted on arrival - does not regularly take diuretics. Above discussed with pt, family, ER attending - total time for this consult including review of labs, meds, imaging, EKG, records - 35 min
[2017-06-24] MEDS ORDERED: POTA10TA32 PO (14:39)
[2017-06-24 14:48] VITALS: BP 110/72; PULSE 62; TEMP 36.8; O2SAT 95
== END 2017-06-24 15:01 | disposition home or self-care (01) ==
LOC: EDBD 07:14 → C.EDB 07:15
DX: E86.0 Dehydration (principal); E87.6 Hypokalemia; I44.0 Atrioventricular block, first degree; I45.10 Unspecified right bundle-branch block; K58.9 Irritable bowel syndrome, unspecified; Z87.440 Personal history of urinary (tract) infections; Z79.82 Long term (current) use of aspirin; Z79.899 Other long term (current) drug therapy; Z88.0 Allergy status to penicillin; Z88.2 Allergy status to sulfonamides

== ENCOUNTER → 2017-06-29 | Outpatient (CLI) | payer BC, OTHER ==
[~2017-06-29] MED LIST changes: -NXM/40 PO; +PANT40TA PO; +POTA10TA32 PO; -SENN8.6T7 PO
[2017-06-29 15:36] LABS: BASO % 0.9 %; BASO ABS # 0.09 K/uL (0-0.2); EOS % 3.8 %; EOS ABS # 0.38 K/uL (0-0.5); HEMATOCRIT 43.5 % (42-52); HEMOGLOBIN 15.2 g/dL (14.0-18.0); IG# 0.31 K/uL (0.00-0.02); LYMPH % 28.6 %; LYMPH ABS # 2.84 K/uL (1.2-3.4); MEAN CELL VOLUME 93.1 fL (80-100); MEAN CORPUSCULAR HEMOGLOBIN 32.5 pg (25-34); MEAN CORPUSCULAR HGB CONC 34.9 g/dl (32-36); MEAN PLATELET VOLUME 9.4 fL (7.4-10.4); MONO % 10.1 %; NEUT % 53.5 %; NEUT ABS # 5.31 K/uL (1.4-6.5); PLATELET COUNT 275 K/uL (130-400); RED CELL DISTRIBUTION WIDTH CV 13.6 % (11.5-14.5); RED CELL DISTRIBUTION WIDTH SD 45.9 fL (36.4-46.3); WHITE BLOOD COUNT 9.93 K/uL (4.8-10.8)
[2017-06-29 17:41] LABS: BLOOD UREA NITROGEN 14 mg/dl (7-18); CALCIUM 9.6 mg/dl (8.5-10.1); CARBON DIOXIDE 29 mmol/L (21-32); CREATININE 1.27 mg/dl (0.60-1.40); GLUCOSE 87 mg/dl (70-99); POTASSIUM 3.9 mmol/L (3.5-5.1); SODIUM 136 mmol/L (136-145)
== END | disposition home or self-care (01) ==
LOC: C.LAB1850 14:49
PROVIDERS: ATTEND Internal Medicine
DX: I10 Essential (primary) hypertension (principal)

== ENCOUNTER → 2017-07-15 | Outpatient (CLI) | payer BC, OTHER ==
[2017-07-15 14:05] LABS: URINE APPEARANCE CLOUDY (CLEAR); URINE BACTERIA AUTO 2+ (NEG); URINE BLOOD HGB 3+ (NEG); URINE COLOR DK YELLOW; URINE GLUCOSE(DIPSTICK) NEG (NEG); URINE KETONES TRACE (NEG); URINE LEUKOCYTE ESTERASE MODERATE (NEG); URINE NITRITE POS (NEG); URINE PROTEIN(DIPSTICK) TRACE (NEG); URINE SPECIFIC GRAVITY 1.026 (1.000-1.030); URINE WBC AUTO >30 /hpf (0-5); UROBILINOGEN NEG (NEG)
[2017-07-15 14:14] LABS: MANUAL MICROSCOPIC REQUIRED? NO; REVIEW REQ? NO; URINE BILIRUBIN NEG (NEG); URINE ICTOTEST NEG (NEG)
== END | disposition home or self-care (01) ==
LOC: C.LAB1850 10:58
DX: N39.0 Urinary tract infection, site not specified (principal)